=== PATIENT | male | born 1930 | race Caucasian/White ===

== ENCOUNTER 2017-04-10 09:20 | Outpatient (CLI) | payer MEDICARE ==
[2017-04-10 12:41] LABS: Bilirubin Negative (Negative); Blood, Urine Negative (Negative); Clarity Clear (Clear); Glucose, Urine (Dipstick) Negative (Negative); Leukocyte Negative (Negative); Nitrite Negative (Negative); Protein, Urine (Dipstick) Negative (Neg-Trace); Urobilinogen 0.2 mg/dL (0.2-1.0); pH, Urine 5.5 (5.0-9.0)
[2017-04-10 12:42] LABS: #Basophils 0.1 thou/uL (0.0-0.2); #Eosinphils 0.2 thou/uL (0.0-0.7); #Lymphocytes 2.5 thou/uL (1.20-3.40); #Monocytes 0.7 thou/uL (0.11-0.59); #Neutrophils 4.3 thou/uL (1.40-6.50); %Basophils 1.3 % (0.0-1.0); %Eosinophils 2.9 % (0.0-10.0); %Lymphocytes 32.5 % (21.0-51.0); %Monocytes 8.4 % (0.0-10.0); %Neutrophils 54.9 % (42.0-75.0); Hemoglobin 8.5 g/dL (14.0-18.0); Mean Corpuscular HGB CONC 30.4 g/dL (32.0-36.0); Mean Corpuscular Hemoglobin 25.6 pg (27.0-31.0); Mean Corpuscular Volume 84.4 fl (80.0-94.0); Mean Platelet Volume 7.6 fL (7.4-10.4); Platelet Count 334 thou/uL (130-400); RBC Distribution Width 15.8 % (11.5-14.5); Red Blood Cell (RBC) Count 3.33 mill/uL (4.70-6.10); White Blood Cell (WBC) Count 7.7 thou/uL (4.8-10.8)
[2017-04-10 13:04] LABS: ALT (SGPT) 10 U/L (8-55); AST (SGOT) 19 U/L (5-34); Albumin 4.2 g/dL (3.4-4.8); Alkaline Phosphatase 57 U/L (40-150); Anion Gap 15 mmol/L (10-20); BUN (Urea Nitrogen) 29 mg/dL (8.4-25.7); Bilirubin, Total 0.3 mg/dL (0.2-1.2); Calc. Creatinine Clearance 0 mL/min (70-130); Calcium 9.5 mg/dL (7.8-10.44); Carbon Dioxide 21 mmol/L (23-31); Cardiac Risk 4.8 (Less than 4.5); Chloride 107 mmol/L (98-107); Cholesterol 183 mg/dl (< 200 Desired); Estimated GFR-MDRD 31; Globulin 3.1 g/dL (2.4-3.5); Glucose 84 mg/dL (83-110); HDL Cholesterol 38 mg/dL (>60 Neg Risk); LDL Cholesterol, Calculated 128 mg/dL; Potassium 4.7 mmol/L (3.5-5.1); Protein, Total 7.3 g/dL (5.8-8.1); Sodium 138 mmol/L (136-145); Triglycerides 84 mg/dL (Less than 150)
[2017-04-10 13:09] LABS: PSA-Asymptomatic (SCREENING) 0.4 ng/mL (0-4.0); Thyroid Stimulating Hormone 2.088 uIU/mL (0.35-4.94)
== END 2017-04-10 09:21 | disposition home or self-care (01) ==
LOC: NAVSJIPCSP 09:20
PROVIDERS: ATTEND Internal Medicine
DX: Z12.5 Encounter for screening for malignant neoplasm of prostate (principal); M47.816 Spondylosis without myelopathy or radiculopathy, lumbar region; I10 Essential (primary) hypertension; I25.10 Atherosclerotic heart disease of native coronary artery without angina pectoris; D29.1 Benign neoplasm of prostate; E03.9 Hypothyroidism, unspecified
CPT/HCPCS: 36415; 80053; 80061; 81003; 84443; 85025; G0103

== ENCOUNTER 2017-04-15 16:19 | Outpatient (CLI) | payer MEDICARE ==
[2017-04-15 21:18] LABS: Reticulocyte Count 1.6 % (0.5-1.5)
[2017-04-16 19:25] LABS: Vitamin B12 Greater than 2000 pg/mL (211-911)
== END 2017-04-15 16:20 | disposition home or self-care (01) ==
LOC: NAVSJIPCSP 16:19 → NAV LAB 16:20
PROVIDERS: ATTEND Internal Medicine
DX: D64.89 Other specified anemias (principal); Z79.899 Other long term (current) drug therapy
CPT/HCPCS: 82274; 82607; 82728; 82746; 85046

== ENCOUNTER 2017-07-23 12:17 | Outpatient (CLI) | payer MEDICARE ==
[2017-07-23 14:17] LABS: Hemoglobin 12.2 g/dL (14.0-18.0)
== END 2017-07-23 12:18 | disposition home or self-care (01) ==
LOC: NAV LABSP 12:17
PROVIDERS: ATTEND Internal Medicine Gastroenterology
DX: D50.9 Iron deficiency anemia, unspecified (principal)
CPT/HCPCS: 36415; 85014; 85018

== ENCOUNTER 2017-08-12 09:45 | Outpatient (CLI) | payer MEDICARE ==
[2017-08-12 11:53] LABS: #Basophils 0.1 thou/uL (0.0-0.2); #Eosinphils 0.2 thou/uL (0.0-0.7); #Lymphocytes 2.8 thou/uL (1.20-3.40); #Monocytes 0.6 thou/uL (0.11-0.59); #Neutrophils 3.9 thou/uL (1.40-6.50); %Basophils 0.9 % (0.0-1.0); %Eosinophils 2.9 % (0.0-10.0); %Lymphocytes 36.9 % (21.0-51.0); %Monocytes 7.7 % (0.0-10.0); %Neutrophils 51.6 % (42.0-75.0); Hemoglobin 12.7 g/dL (14.0-18.0); Mean Corpuscular Volume 96.6 fl (80.0-94.0); Mean Platelet Volume 7.3 fL (7.4-10.4); Platelet Count 243 thou/uL (130-400); RBC Distribution Width 17.2 % (11.5-14.5); Red Blood Cell (RBC) Count 4.09 mill/uL (4.70-6.10); White Blood Cell (WBC) Count 7.5 thou/uL (4.8-10.8)
[2017-08-12 12:09] LABS: Anion Gap 16 mmol/L (10-20); BUN (Urea Nitrogen) 30 mg/dL (8.4-25.7); Calc. Creatinine Clearance 0 mL/min (70-130); Calcium 10.2 mg/dL (7.8-10.44); Carbon Dioxide 22 mmol/L (23-31); Chloride 104 mmol/L (98-107); Estimated GFR-MDRD 33; Glucose 96 mg/dL (83-110); Magnesium 2.7 mg/dL (1.6-2.6); Sodium 137 mmol/L (136-145)
== END 2017-08-12 09:46 | disposition home or self-care (01) ==
LOC: NAVSJIPCSP 09:45
PROVIDERS: ATTEND Internal Medicine
DX: D64.89 Other specified anemias (principal)
CPT/HCPCS: 36415; 80048; 83735; 84443; 85025

== ENCOUNTER 2017-08-19 08:48 | Outpatient (CLI) | payer MEDICARE ==
[2017-08-19 12:43] LABS: #Basophils 0.1 thou/uL (0.0-0.2); #Eosinphils 0.2 thou/uL (0.0-0.7); #Lymphocytes 2.6 thou/uL (1.20-3.40); #Monocytes 0.6 thou/uL (0.11-0.59); #Neutrophils 3.7 thou/uL (1.40-6.50); %Basophils 1.2 % (0.0-1.0); %Eosinophils 2.8 % (0.0-10.0); %Lymphocytes 35.8 % (21.0-51.0); %Monocytes 8.5 % (0.0-10.0); %Neutrophils 51.7 % (42.0-75.0); Hemoglobin 12.7 g/dL (14.0-18.0); Mean Corpuscular HGB CONC 32.7 g/dL (32.0-36.0); Mean Corpuscular Hemoglobin 31.7 pg (27.0-31.0); Mean Platelet Volume 7.1 fL (7.4-10.4); Platelet Count 258 thou/uL (130-400); RBC Distribution Width 16.5 % (11.5-14.5); White Blood Cell (WBC) Count 7.1 thou/uL (4.8-10.8)
== END 2017-08-19 08:49 | disposition home or self-care (01) ==
LOC: NAVSJIPCSP 08:48
PROVIDERS: ATTEND Internal Medicine
DX: D64.89 Other specified anemias (principal)
CPT/HCPCS: 36415; 85025

== ENCOUNTER 2018-02-10 01:13 | Emergency (ER) | payer MEDICARE ==
[2018-02-10] MEDS ORDERED: Sodium Chloride 0.9% 1,000 ML ONE (01:46)
[2018-02-10] MEDS ORDERED: Diltiazem 125 MG/25 ML ONE (01:46)
[2018-02-10] MEDS ORDERED: cefTRIAXone\\ROCEPHIN 1 GM VIAL ONE (01:46)
[2018-02-10] MEDS ORDERED: Acetaminophen 500 MG TAB ONE (01:46)
[2018-02-10] MEDS ORDERED: Sodium Chloride 0.9% 100 ML ONE (01:47)
[2018-02-10 01:55] LABS: INR-International Normal Ratio 1.5; PTT 41.9 SEC (22.9-36.1); Prothrombin Time 18.8 SEC (12.0-14.7)
[2018-02-10 01:57] LABS: ALT (SGPT) 33 U/L (8-55); AST (SGOT) 42 U/L (5-34); Albumin 3.5 g/dL (3.4-4.8); Alkaline Phosphatase 52 U/L (40-150); Anion Gap 13 mmol/L (10-20); BUN (Urea Nitrogen) 31 mg/dL (8.4-25.7); Bilirubin, Total 0.6 mg/dL (0.2-1.2); CKMB 5.7 ng/mL (0-6.6); Calc. Creatinine Clearance 0 mL/min (70-130); Calcium 9.5 mg/dL (7.8-10.44); Carbon Dioxide 20 mmol/L (23-31); Chloride 106 mmol/L (98-107); Estimated GFR-MDRD 38; Globulin 3.2 g/dL (2.4-3.5); Glucose 107 mg/dL (83-110); Potassium 4.1 mmol/L (3.5-5.1); Protein, Total 6.7 g/dL (5.8-8.1); Sodium 135 mmol/L (136-145)
[2018-02-10 02:03] LABS: Band 19 % (5-11); Hemoglobin 12.5 g/dL (14.0-18.0); Lymphocytes 12 % (21-51); MDiff Complete? YES; Mean Corpuscular HGB CONC 33.1 g/dL (32.0-36.0); Mean Corpuscular Hemoglobin 31.6 pg (27.0-31.0); Mean Corpuscular Volume 95.5 fl (80.0-94.0); Mean Platelet Volume 9.2 fL (7.4-10.4); Monocytes 5 % (0-10); Neutrophil 64 % (42-75); PLT Morphology Comment Appears Adequate; Platelet Count 200 thou/uL (130-400); RBC Distribution Width 12.2 % (11.5-14.5); RBC Morphology Normal; Red Blood Cell (RBC) Count 3.96 mill/uL (4.70-6.10); White Blood Cell (WBC) Count 12.6 thou/uL (4.8-10.8)
[2018-02-10 02:16] LABS: Bilirubin Negative (Negative); Blood, Urine Moderate (Negative); Clarity Clear (Clear); Glucose, Urine (Dipstick) Negative (Negative); Leukocyte Negative (Negative); Nitrite Negative (Negative); Protein, Urine (Dipstick) 100 mg/dL (Neg-Trace); Urobilinogen 0.2 mg/dL (0.2-1.0)
[2018-02-10 02:22] LABS: Bacteria/HPF None Seen HPF (None Seen); RBC/HPF 0-3 HPF (0-3); Squamous Epithelial None Seen HPF (0-3); WBC/HPF 0-3 HPF (0-3)
--- NOTE | 2018-02-10 08:11 | RAD ---
CHEST ONE VIEW: History: Fever. Comparison: 09-08-15 FINDINGS: Cardiac silhouette is magnified by projection. Pulmonary vasculature is upper limits of normal. Trian gular opacity projects over the anterior segment right upper lobe. Mediastinum is midline with aortic calcification and post-operative changes. No evidence of pneumothorax. IMPRESSION: 1. Subtle right upper lobe infiltrate. Clinical correlation regarding other signs and symptoms of rig ht upper lobe pneumonitis is required. Please consider close radiographic follow up with upright PA a nd lateral views of the chest for further evaluation. 2. Borderline pulmonary vascular congestion. POS: [facility]
== END 2018-02-10 02:58 | disposition short-term general hospital (02) ==
LOC: NAV ERS 01:13
DX: I48.91 Unspecified atrial fibrillation (principal); R50.9 Fever, unspecified; D50.0 Iron deficiency anemia secondary to blood loss (chronic); I10 Essential (primary) hypertension; I25.10 Atherosclerotic heart disease of native coronary artery without angina pectoris; E03.9 Hypothyroidism, unspecified; E78.5 Hyperlipidemia, unspecified; Z79.899 Other long term (current) drug therapy
CPT/HCPCS: 51701; 71045; 80053; 81003; 81015; 82553; 83605; 84484; 85025; 85610; 85730; 87040; 87086; 87804; 93005; 94760; 96365; 96375; J0696; J7050

== ENCOUNTER 2018-02-16 19:37 | Inpatient (IN) | payer MEDICARE ==
[2018-02-16] MEDS ORDERED: Nitroglycerin 0.4 MG TAB (25 Tab Bottle) SL PRN (20:30)
[2018-02-16] MEDS ORDERED: Amoxicillin/Potassium Clav 875 MG TAB PO SCH (21:00)
[2018-02-16] MEDS: Magnesium Chloride 64 MG TAB PO SCH (21:28)
[2018-02-16] MEDS: Aspirin 81 mg Enteric Coated Tablet PO SCH (21:28)
[2018-02-16] MEDS: Apixaban 5 MG TAB PO SCH (21:28)
[2018-02-16 22:58] VITALS: BMI 25.1
--- NOTE | 2018-02-17 00:20 | HP ---
DATE OF ADMISSION: 02/16/2018 HISTORY OF PRESENT ILLNESS: The patient is a very pleasant 87-year-old white male well known [facility] with a history of paroxysmal atrial fibrillation, coronary artery disease, status post distant cor onary bypass graft with recent negative Cardiolite, hypertension, hyperlipidemia, who presented to [facility] on 02/10/2018 with significant weakness, shortness of breath, was found to have atrial fibri llation with rapid ventricular response and underlying pneumonia. Coronary ischemia was ruled out wi th enzymes. He was started on diltiazem drip for rate control. He continued to have difficulty with this when attempted to be weaned off the IV diltiazem, despite being on oral diltiazem and subsequen tly was started on digoxin with good rate control. He was started on anticoagulation with apixaban a nd had no problems with breathing or embolic events. He did have some problem with intermittent conf usion, was evaluated for pulmonary embolus with a CT angio. His white count remained normal. He was , however, started on broad spectrum antibiotics with Rocephin and azithromycin then converted to Zos yn and vancomycin, but was controlled and was discharge on Augmentin. He has had no cough since that time, he has been seen by Speech and has been started on honey thickened regular diet and has done w ell. PAST MEDICAL HISTORY: Remarkable also for hypothyroidism, gastroesophageal reflux, benign prostatic hypertrophy. PAST SURGICAL HISTORY: As mentioned above, positive for coronary bypass graft also cholecystectomy, and laminectomy. FAMILY HISTORY: Positive for coronary artery disease. SOCIAL HISTORY: He is a , lives alone, next door to his son. He is a nonsmoker, nondrinker. MEDICATIONS ON ADMISSION: Included levothyroxine 50 mcg daily, lisinopril 20 daily, aspirin 81 daily , isosorbide 30 daily, fluticasone nasal spray, amlodipine 5 daily, Apixaban 2.5 twice daily, Zetia 1 0 daily, ferrous sulfate 325 daily, naproxen 220 daily, and omeprazole 20 twice daily. ALLERGIES: He is allergic to MULTAQ, AMIODARONE, MORPHINE, TRAMADOL, CODEINE, and LOMOTIL. REVIEW OF SYSTEMS: HEENT: He denies any headaches, dizziness. He does state he is very weak and requires a walker to a mbulate. He denies any change in vision or hearing. 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 PULMONARY: Denies cough or sputum production this time. He did have significant cough on admission with minimal sputum production. He has no chest pain, pleurisy. CARDIOVASCULAR: He denies any palpitations, orthopnea, paroxysmal nocturnal dyspnea. has no dyspnea at rest, but does have some mild dyspnea on exertion. GASTROINTESTINAL: Denies nausea, vomiting, diarrhea, constipation, abdominal pain. GENITOURINARY: Denies dysuria, hematuria. Does have some mild decreased stream and nocturia. NEUROLOGIC: Denies localized numbness, weakness, in arms or extremities. PHYSICAL EXAMINATION: GENERAL: Patient is an elderly white male lying in bed in no acute distress, oriented x3 and coopera tive. VITAL SIGNS: Blood pressure 146/67, temperature is 99, pulse 73 at this time, respirations 18, and O 2 sats 93% on 2 liters. HEENT: Pupils are equal, round, and react to light and accommodation. Sclerae are anicteric, Conjun ctivae pale. Oral mucous membranes well hydrated. NECK: Supple. There are no nodes or masses. JVP is not elevated. LUNGS: Clear. CARDIAC: Shows an irregularly irregular rhythm. No gallops or murmurs. ABDOMEN: Soft, nontender with no masses or organomegaly. SKIN/EXTREMITIES: Display no edema, clubbing, cyanosis. NEUROLOGICAL: Shows no focal findings. LABORATORY DATA: Most recent laboratory show white count still elevated to 14,000, hematocrit 35, he moglobin 11. PO2 of 87, pCO2 of 30, pH of 7.50 on 2 liters. Magnesium 2.1. B12 is 2000. Sodium 13 3, potassium 3.7, chloride 103, bicarb 20, BUN 29, creatinine 1.62, glucose 92, calcium 8.6. Digoxin level 1.17. ASSESSMENT: 1. Patient is an 87-year-old white male with a history of recent pneumonia with subsequent onset of atrial fibrillation with rapid ventricular response, who has had control of his atrial fibrillation w ith oral diltiazem and digoxin has been anticoagulated with apixaban. He appears to be getting stron jimmie and still requires PT and OT. He also has a history of pneumonia, most likely the precipitating factor, atrial fibrillation with RVR, and is still having a leukocytosis of 14,000 with a low grade f ever despite being on Augmentin. We will be monitored closely and may need to be back on Rocephin, b ut we will repeat chest x-ray in the a.m. 2. Hypertension is well controlled at this time on diltiazem off of his lisinopril and amlodipine. We will monitor closely, may need to be back on the lisinopril. 3. Benign prostatic hypertrophy, stable. 4. Hyperlipidemia, stable and we will continue home medications.
[2018-02-17 05:09] LABS: #Basophils 0.1 thou/uL (0.0-0.2); #Eosinphils 0.4 thou/uL (0.0-0.7); #Lymphocytes 1.4 thou/uL (1.20-3.40); #Neutrophils 12.4 thou/uL (1.40-6.50); %Basophils 0.7 % (0.0-1.0); %Eosinophils 2.4 % (0.0-10.0); %Lymphocytes 8.9 % (21.0-51.0); %Monocytes 6.6 % (0.0-10.0); %Neutrophils 81.5 % (42.0-75.0); Mean Corpuscular HGB CONC 33.3 g/dL (32.0-36.0); Mean Corpuscular Volume 96.2 fl (80.0-94.0); Mean Platelet Volume 8.3 fL (7.4-10.4); Platelet Count 443 thou/uL (130-400); RBC Distribution Width 12.5 % (11.5-14.5); Red Blood Cell (RBC) Count 4.05 mill/uL (4.70-6.10); White Blood Cell (WBC) Count 15.2 thou/uL (4.8-10.8)
[2018-02-17 05:29] LABS: ALT (SGPT) 53 U/L (8-55); AST (SGOT) 49 U/L (5-34); Alkaline Phosphatase 61 U/L (40-150); Anion Gap 15 mmol/L (10-20); BUN (Urea Nitrogen) 24 mg/dL (8.4-25.7); Bilirubin, Total 0.8 mg/dL (0.2-1.2); Calc. Creatinine Clearance 36 mL/min (70-130); Calcium 9.7 mg/dL (7.8-10.44); Carbon Dioxide 22 mmol/L (23-31); Chloride 101 mmol/L (98-107); Estimated GFR-MDRD 48; Globulin 4.3 g/dL (2.4-3.5); Glucose 92 mg/dL (83-110); Potassium 4.4 mmol/L (3.5-5.1); Protein, Total 7.3 g/dL (5.8-8.1); Sodium 134 mmol/L (136-145)
[2018-02-17] MEDS: Levothyroxine Sodium 50 MCG TAB PO SCH (05:47)
[2018-02-17] MEDS: Digoxin 0.125 MG TAB PO SCH (08:23)
[2018-02-17] MEDS: Potassium Chloride 20 MEQ TAB PO SCH (08:23)
[2018-02-17] MEDS: Ferrous Sulfate 325 MG TAB PO SCH (08:24)
[2018-02-17] MEDS: Apixaban 5 MG TAB PO SCH ×2 (08:24→20:48)
[2018-02-17] MEDS: Naproxen 500 MG TAB PO SCH (08:24)
[2018-02-17] MEDS: Vancomycin HCl 750 MG in Sodium Chloride 0.9% 250 ML 250 ML IVPB SCH (08:25)
[2018-02-17] MEDS: Ezetimibe 10 MG TAB PO SCH (08:25)
--- NOTE | 2018-02-17 09:33 | RAD ---
PORTABLE CHEST 1 VIEW: Date: 02/17/18 Time: 0839 hours HISTORY: Pneumonia. FINDINGS/IMPRESSION: Comparison made with exam of 02/14/18. There is continued patchy air space disease in the right upper lobe. No pneumothoraces or large effus ions are identified. Increased interstitial markings are again noted. Changes of median sternotomy ar e again seen. POS: [facility]
--- NOTE | 2018-02-17 09:41 | RAD ---
LEFT WRIST 3 VIEWS: Date: 02/17/18 HISTORY: Wrist pain. COMPARISON: None. FINDINGS: No acute displaced fracture or malalignment. Mild calcification triangular fibrocartilage. Small radi opaque foreign object along the ulnar styloid. Moderate degenerative disease of carpometacarpal joint . IMPRESSION: No acute fracture or malalignment. POS: [facility]
[2018-02-17] MEDS: Piperacillin/Tazobactam 2.25 GM in Sodium Chloride 0.9% 100 ML IVPB SCH ×2 (14:24→20:48)
[2018-02-17] MEDS: Magnesium Chloride 64 MG TAB PO SCH ×2 (17:25→20:48)
[2018-02-17] MEDS: Aspirin 81 mg Enteric Coated Tablet PO SCH (20:48)
--- NOTE | 2018-02-17 21:18 | PRG ---
DATE OF SERVICE: 02/17/2018 SUBJECTIVE: The patient is slightly confused, but in no respiratory distress and agitation. Appears to be attempting to cooperate with therapy. LABORATORY DATA: Shows white count is still elevated to 15,200, hematocrit 39, hemoglobin 13. Sodiu m 134, potassium 4.4, chloride 101, bicarbonate 22, BUN 24, creatinine 1.39, albumin 3.0, globulin 4. 3, AST 49. OBJECTIVE: LUNGS: Appear to be clear. CARDIAC: Examination shows regular rhythm, but chest x-ray shows persistent right upper lobe patchy infiltrates on Augmentin. ASSESSMENT: 1. Persistent pneumonia appears to be worsening white count on oral antibiotics and we will start ag ain on vancomycin and Zosyn and repeat lab in the a.m. 2. Atrial fibrillation with rate control and anticoagulation appears to be stable. 3. Hospital delirium, superimposed on mild dementia. He is to be monitored closely. 4. Severe deconditioning cooperating with therapy. PLAN: 1. Continue PT, OT. 2. Continue vancomycin and Zosyn. Vancomycin monitored by pharmacy. 3. Continue to monitor vital signs on diltiazem and apixaban. 4. Repeat CBC and base met profile in the a.m.
[2018-02-18 05:25] LABS: #Basophils 0.1 thou/uL (0.0-0.2); #Eosinphils 0.5 thou/uL (0.0-0.7); #Lymphocytes 1.5 thou/uL (1.20-3.40); #Monocytes 0.9 thou/uL (0.11-0.59); #Neutrophils 10.9 thou/uL (1.40-6.50); %Basophils 0.6 % (0.0-1.0); %Eosinophils 3.7 % (0.0-10.0); %Lymphocytes 10.6 % (21.0-51.0); %Monocytes 6.3 % (0.0-10.0); %Neutrophils 78.8 % (42.0-75.0); Hemoglobin 12.3 g/dL (14.0-18.0); Mean Corpuscular HGB CONC 33.3 g/dL (32.0-36.0); Mean Corpuscular Hemoglobin 32.7 pg (27.0-31.0); Mean Corpuscular Volume 98.1 fl (80.0-94.0); Mean Platelet Volume 7.3 fL (7.4-10.4); Platelet Count 507 thou/uL (130-400); RBC Distribution Width 12.7 % (11.5-14.5); Red Blood Cell (RBC) Count 3.75 mill/uL (4.70-6.10); White Blood Cell (WBC) Count 13.8 thou/uL (4.8-10.8)
[2018-02-18 05:41] LABS: Anion Gap 14 mmol/L (10-20); BUN (Urea Nitrogen) 31 mg/dL (8.4-25.7); Calc. Creatinine Clearance 37 mL/min (70-130); Calcium 9.5 mg/dL (7.8-10.44); Carbon Dioxide 20 mmol/L (23-31); Chloride 105 mmol/L (98-107); Estimated GFR-MDRD 51; Glucose 96 mg/dL (83-110); Potassium 4.3 mmol/L (3.5-5.1); Sodium 135 mmol/L (136-145)
[2018-02-18] MEDS: Levothyroxine Sodium 50 MCG TAB PO SCH (06:39)
[2018-02-18] MEDS: Piperacillin/Tazobactam 2.25 GM in Sodium Chloride 0.9% 100 ML IVPB SCH ×3 (06:39→21:21)
--- NOTE | 2018-02-18 08:19 | PRG ---
DATE OF SERVICE: 02/18/2018 SUBJECTIVE: The patient is awake and alert, in no distress, slightly confused, but not agitated and cooperating with therapy. OBJECTIVE: VITAL SIGNS: Show blood pressure is 148/65, temperature 97, pulse 79, respirations 20, O2 sat is 95% on room air. LUNGS: Clear. CARDIAC EXAMINATION: Shows an irregular rhythm with no gallops or murmurs. ABDOMEN: Soft and nontender. SKIN AND EXTREMITIES: Show no edema, clubbing, cyanosis. LABORATORY DATA: Shows white count is down to 13,800, hematocrit 36, hemoglobin 12, sodium 135, pota ssium 4.3, chloride 105, bicarbonate 20, BUN 31, creatinine 1.33. Most recent chest x-ray yesterday did show persistent right upper lobe infiltrates. ASSESSMENT: 1. Right upper lobe pneumonia, failed treatment with Augmentin, appears to be improving on IV vancom ycin and Zosyn. We will continue for 1 week with pharmacy to measure vancomycin. 2. Atrial fibrillation with rate control, on anticoagulation, stable on diltiazem. 3. Severe deconditioning with multiple falls recently, improving with PT and OT. 4. Mild dementia with superimposed delirium, appears to be slowly improving. PLAN: Continue PT/OT. Continue IV vancomycin and Zosyn. Repeat CBC in the a.m. Continue rate cont rol with diltiazem and anticoagulation with apixaban.
[2018-02-18] MEDS: Naproxen 500 MG TAB PO SCH (09:03)
[2018-02-18] MEDS: Apixaban 5 MG TAB PO SCH ×2 (09:03→20:18)
[2018-02-18] MEDS: Ezetimibe 10 MG TAB PO SCH (09:04)
[2018-02-18] MEDS: Potassium Chloride 20 MEQ TAB PO SCH (09:04)
[2018-02-18] MEDS: Ferrous Sulfate 325 MG TAB PO SCH (09:04)
[2018-02-18] MEDS: Digoxin 0.125 MG TAB PO SCH (09:04)
[2018-02-18] MEDS: Vancomycin HCl 750 MG in Sodium Chloride 0.9% 250 ML 250 ML IVPB SCH (09:06)
[2018-02-18] MEDS: Magnesium Chloride 64 MG TAB PO SCH ×2 (14:39→20:17)
[2018-02-18] MEDS: Aspirin 81 mg Enteric Coated Tablet PO SCH (20:18)
[2018-02-19] MEDS: Levothyroxine Sodium 50 MCG TAB PO SCH (05:26)
[2018-02-19] MEDS: Piperacillin/Tazobactam 2.25 GM in Sodium Chloride 0.9% 100 ML IVPB SCH ×3 (05:26→20:57)
[2018-02-19] MEDS: Magnesium Chloride 64 MG TAB PO SCH ×2 (08:14→21:14)
[2018-02-19] MEDS: Apixaban 5 MG TAB PO SCH ×2 (08:15→20:58)
[2018-02-19] MEDS: Ferrous Sulfate 325 MG TAB PO SCH (08:16)
[2018-02-19] MEDS: Potassium Chloride 20 MEQ TAB PO SCH (08:16)
[2018-02-19] MEDS: Ezetimibe 10 MG TAB PO SCH (08:16)
[2018-02-19] MEDS: Naproxen 500 MG TAB PO SCH (08:16)
[2018-02-19] MEDS: Digoxin 0.125 MG TAB PO SCH (08:18)
[2018-02-19 08:19] LABS: #Basophils 0.1 thou/uL (0.0-0.2); #Eosinphils 0.6 thou/uL (0.0-0.7); #Monocytes 0.9 thou/uL (0.11-0.59); #Neutrophils 9.8 thou/uL (1.40-6.50); %Basophils 1.1 % (0.0-1.0); %Eosinophils 4.6 % (0.0-10.0); %Lymphocytes 14.8 % (21.0-51.0); %Monocytes 6.4 % (0.0-10.0); %Neutrophils 73.2 % (42.0-75.0); Hemoglobin 13.1 g/dL (14.0-18.0); Mean Corpuscular HGB CONC 32.2 g/dL (32.0-36.0); Mean Corpuscular Hemoglobin 32.1 pg (27.0-31.0); Mean Corpuscular Volume 99.7 fl (80.0-94.0); Mean Platelet Volume 7.2 fL (7.4-10.4); Platelet Count 671 thou/uL (130-400); RBC Distribution Width 12.9 % (11.5-14.5); Red Blood Cell (RBC) Count 4.09 mill/uL (4.70-6.10); White Blood Cell (WBC) Count 13.4 thou/uL (4.8-10.8)
[2018-02-19] MEDS: Vancomycin HCl 750 MG in Sodium Chloride 0.9% 250 ML 250 ML IVPB SCH (08:21)
[2018-02-19 08:27] LABS: Vancomycin, Trough 10.1 ug/mL
[2018-02-19 08:30] LABS: Anion Gap 16 mmol/L (10-20); BUN (Urea Nitrogen) 26 mg/dL (8.4-25.7); Calc. Creatinine Clearance 35 mL/min (70-130); Carbon Dioxide 20 mmol/L (23-31); Chloride 105 mmol/L (98-107); Digoxin 1.09 ng/mL (0.8-2.0); Estimated GFR-MDRD 47; Glucose 112 mg/dL (83-110); Potassium 4.4 mmol/L (3.5-5.1); Sodium 137 mmol/L (136-145)
--- NOTE | 2018-02-19 13:30 | PRG ---
DATE OF SERVICE: 02/19/2018 SUBJECTIVE: Mr. Martinez is doing well, resting comfortably, sleeping, but arousable. Discussed with charlie camara and no concerns. OBJECTIVE: VITAL SIGNS: He is afebrile, heart rate is 80, respirations 20, oxygen saturation 94% on room air, b lood pressure 171/74 this morning. Last night it was 141/63 and yesterday morning 126/58. CARDIOVASCULAR: S1, S2 plus. RESPIRATORY: Normal vesicular breath sounds. ABDOMEN: Soft, nontender, bowel sounds heard in all quadrants. EXTREMITIES: Without cyanosis or clubbing. CENTRAL NERVOUS SYSTEM: Generalized weakness. IMPRESSION: 1. Right upper lobe pneumonia, responding to vancomycin and Zosyn. 2. Atrial fibrillation. 3. Significant deconditioning. 4. Dementia. 5. Hypothyroidism. 6. Gastroesophageal reflux disease. 7. Benign prostatic hypertrophy. PLAN: 1. Continue IV antibiotics. 2. Routine laboratory values. 3. Breathing treatments. 4. Monitor respiratory status. 5. DVT and stress ulcer prophylaxis. 6. Decubitus precautions.
[2018-02-19] MEDS: Aspirin 81 mg Enteric Coated Tablet PO SCH (20:59)
[2018-02-20] MEDS: Piperacillin/Tazobactam 2.25 GM in Sodium Chloride 0.9% 100 ML IVPB SCH ×3 (05:28→21:39)
[2018-02-20] MEDS: Levothyroxine Sodium 50 MCG TAB PO SCH (05:28)
[2018-02-20 05:35] LABS: #Basophils 0.1 thou/uL (0.0-0.2); #Eosinphils 0.5 thou/uL (0.0-0.7); #Lymphocytes 1.7 thou/uL (1.20-3.40); #Neutrophils 9.5 thou/uL (1.40-6.50); %Basophils 1.1 % (0.0-1.0); %Lymphocytes 13.3 % (21.0-51.0); %Monocytes 7.8 % (0.0-10.0); %Neutrophils 73.8 % (42.0-75.0); Hemoglobin 11.7 g/dL (14.0-18.0); Mean Corpuscular HGB CONC 32.7 g/dL (32.0-36.0); Mean Corpuscular Hemoglobin 32.2 pg (27.0-31.0); Mean Corpuscular Volume 98.6 fl (80.0-94.0); Mean Platelet Volume 7.4 fL (7.4-10.4); Platelet Count 663 thou/uL (130-400); RBC Distribution Width 12.7 % (11.5-14.5); Red Blood Cell (RBC) Count 3.63 mill/uL (4.70-6.10); White Blood Cell (WBC) Count 12.9 thou/uL (4.8-10.8)
[2018-02-20 05:36] LABS: Anion Gap 14 mmol/L (10-20); BUN (Urea Nitrogen) 24 mg/dL (8.4-25.7); Calc. Creatinine Clearance 33 mL/min (70-130); Calcium 9.4 mg/dL (7.8-10.44); Carbon Dioxide 20 mmol/L (23-31); Chloride 106 mmol/L (98-107); Estimated GFR-MDRD 44; Glucose 92 mg/dL (83-110); Potassium 4.2 mmol/L (3.5-5.1); Sodium 136 mmol/L (136-145)
[2018-02-20] MEDS: Potassium Chloride 20 MEQ TAB PO SCH (08:38)
[2018-02-20] MEDS: Naproxen 500 MG TAB PO SCH (08:38)
[2018-02-20] MEDS: Apixaban 5 MG TAB PO SCH ×2 (08:38→21:38)
[2018-02-20] MEDS: Ezetimibe 10 MG TAB PO SCH (08:39)
[2018-02-20] MEDS: Digoxin 0.125 MG TAB PO SCH (08:39)
[2018-02-20] MEDS: Ferrous Sulfate 325 MG TAB PO SCH (08:39)
[2018-02-20] MEDS: Magnesium Chloride 64 MG TAB PO SCH ×2 (08:40→21:38)
[2018-02-20] MEDS ORDERED: Vancomycin HCl 1 GM in Sodium Chloride 0.9% 250 ML 250 ML IVPB SCH (09:00)
--- NOTE | 2018-02-20 09:38 | PRG ---
DATE OF SERVICE: 02/20/2018 SUBJECTIVE: Mr. Martinez is doing well up in his chair. Denies any complaints, tolerating his IV antibi otics. Discussed with nursing and no concerns. OBJECTIVE: VITAL SIGNS: He is afebrile, heart rate 84, respirations 20, oxygen saturation 92% on room air, bloo d pressure 165/74. CARDIOVASCULAR SYSTEM: S1, S2 plus. RESPIRATORY SYSTEM: Normal vesicular breath sounds. ABDOMEN: Soft, nontender, bowel sounds heard in all quadrants. EXTREMITIES: Without cyanosis or clubbing. CENTRAL NERVOUS SYSTEM: Generalized weakness. LABORATORY VALUES: White count is down to 12.9, hemoglobin and hematocrit is 11.7 and 35.8. Sodium 136, potassium 4.2, BUN and creatinine 24 and 1.51. IMPRESSION: 1. Resolving right-sided pneumonia on vancomycin and Zosyn. 2. History of atrial fibrillation. 3. Hypothyroidism. 4. Gastroesophageal reflux disease. 5. Benign prostatic hypertrophy. 6. Mild worsening of his BUN and creatinine. PLAN: 1. Monitor renal function. 2. Simplify antibiotic regimen. I am going to stop vancomycin and just continue him on Zosyn. 3. We will hold his naproxen given worsening renal function. 4. Encourage p.o. fluid intake. 5. Routine laboratory values. 6. Physical therapy. 7. Breathing treatments.
[2018-02-20] MEDS: Aspirin 81 mg Enteric Coated Tablet PO SCH (21:39)
[2018-02-21 05:42] LABS: #Basophils 0.2 thou/uL (0.0-0.2); #Eosinphils 0.5 thou/uL (0.0-0.7); #Lymphocytes 1.9 thou/uL (1.20-3.40); #Neutrophils 9.7 thou/uL (1.40-6.50); %Basophils 1.1 % (0.0-1.0); %Eosinophils 3.7 % (0.0-10.0); %Lymphocytes 14.1 % (21.0-51.0); %Monocytes 7.7 % (0.0-10.0); %Neutrophils 73.3 % (42.0-75.0); Hemoglobin 11.9 g/dL (14.0-18.0); Mean Corpuscular HGB CONC 32.3 g/dL (32.0-36.0); Mean Corpuscular Volume 98.9 fl (80.0-94.0); Mean Platelet Volume 7.3 fL (7.4-10.4); Platelet Count 680 thou/uL (130-400); RBC Distribution Width 13.1 % (11.5-14.5); Red Blood Cell (RBC) Count 3.72 mill/uL (4.70-6.10); White Blood Cell (WBC) Count 13.2 thou/uL (4.8-10.8)
[2018-02-21 05:53] LABS: Anion Gap 14 mmol/L (10-20); BUN (Urea Nitrogen) 22 mg/dL (8.4-25.7); Calc. Creatinine Clearance 37 mL/min (70-130); Calcium 9.4 mg/dL (7.8-10.44); Carbon Dioxide 20 mmol/L (23-31); Chloride 108 mmol/L (98-107); Estimated GFR-MDRD 50; Glucose 91 mg/dL (83-110); Potassium 4.4 mmol/L (3.5-5.1); Sodium 138 mmol/L (136-145)
[2018-02-21] MEDS: Levothyroxine Sodium 50 MCG TAB PO SCH (06:11)
[2018-02-21] MEDS: Piperacillin/Tazobactam 2.25 GM in Sodium Chloride 0.9% 100 ML IVPB SCH ×3 (06:11→21:47)
[2018-02-21] MEDS: Ezetimibe 10 MG TAB PO SCH (09:18)
[2018-02-21] MEDS: Digoxin 0.125 MG TAB PO SCH (09:18)
[2018-02-21] MEDS: Potassium Chloride 20 MEQ TAB PO SCH (09:18)
[2018-02-21] MEDS: Apixaban 5 MG TAB PO SCH ×2 (09:18→21:47)
[2018-02-21] MEDS: Magnesium Chloride 64 MG TAB PO SCH ×2 (09:18→21:47)
[2018-02-21] MEDS: Ferrous Sulfate 325 MG TAB PO SCH (09:19)
--- NOTE | 2018-02-21 15:22 | PRG ---
DATE OF SERVICE: 02/21/2018 SUBJECTIVE: Mr. Martinez is resting comfortably. He is arousable. He denies any complaints. No family at bedside. OBJECTIVE: VITAL SIGNS: He is afebrile, heart rate is 77, respirations 21, oxygen saturation 94% on room air, b lood pressure 162/72. CARDIOVASCULAR: S1, S2 plus. RESPIRATORY: Normal vesicular breath sounds. ABDOMEN: Soft, nontender, bowel sounds heard in all quadrants. EXTREMITIES: Without cyanosis or clubbing. CENTRAL NERVOUS SYSTEM: Generalized weakness. LABORATORY VALUES: White count is 13.2, H&H is 11.9 and 36.7. Sodium 138, potassium 4.4, BUN and cr eatinine 22 and 1.35. IMPRESSION: 1. Right lower lobe pneumonia. 2. Improving renal dysfunction. 3. History of atrial fibrillation. 4. Hypothyroidism. 5. Gastroesophageal reflux disease. 6. Benign prostatic hypertrophy. PLAN: 1. Continue IV Zosyn. 2. Monitor CBC. 3. Physical therapy. 4. Nutritional support. 5. Breathing treatments. 6. Monitor oxygen saturation. 7. Discussed with patient in detail. All questions answered.
[2018-02-21] MEDS: Aspirin 81 mg Enteric Coated Tablet PO SCH (21:48)
[2018-02-22 05:28] LABS: #Basophils 0.2 thou/uL (0.0-0.2); #Eosinphils 0.4 thou/uL (0.0-0.7); #Lymphocytes 1.9 thou/uL (1.20-3.40); #Monocytes 1.2 thou/uL (0.11-0.59); #Neutrophils 10.3 thou/uL (1.40-6.50); %Basophils 1.4 % (0.0-1.0); %Eosinophils 2.7 % (0.0-10.0); %Lymphocytes 13.6 % (21.0-51.0); %Monocytes 8.4 % (0.0-10.0); Hemoglobin 12.1 g/dL (14.0-18.0); Mean Corpuscular Hemoglobin 31.7 pg (27.0-31.0); Mean Corpuscular Volume 99.1 fl (80.0-94.0); Mean Platelet Volume 7.1 fL (7.4-10.4); Platelet Count 705 thou/uL (130-400); RBC Distribution Width 13.1 % (11.5-14.5); Red Blood Cell (RBC) Count 3.83 mill/uL (4.70-6.10); White Blood Cell (WBC) Count 13.9 thou/uL (4.8-10.8)
[2018-02-22] MEDS: Piperacillin/Tazobactam 2.25 GM in Sodium Chloride 0.9% 100 ML IVPB SCH ×3 (06:15→21:06)
[2018-02-22] MEDS: Levothyroxine Sodium 50 MCG TAB PO SCH (06:16)
[2018-02-22] MEDS: Potassium Chloride 20 MEQ TAB PO SCH (09:07)
[2018-02-22] MEDS: Ezetimibe 10 MG TAB PO SCH (09:07)
[2018-02-22] MEDS: Digoxin 0.125 MG TAB PO SCH (09:07)
[2018-02-22] MEDS: Ferrous Sulfate 325 MG TAB PO SCH (09:07)
[2018-02-22] MEDS: Magnesium Chloride 64 MG TAB PO SCH ×2 (09:08→21:06)
[2018-02-22] MEDS: Apixaban 5 MG TAB PO SCH ×2 (09:08→21:05)
--- NOTE | 2018-02-22 16:01 | PRG ---
DATE OF SERVICE: 02/22/2018 SUBJECTIVE: Mr. Martinez is doing well, resting comfortably. Denies any complaints. No family at [facility]. Discussed with nursing. OBJECTIVE: VITAL SIGNS: He is afebrile, heart rate 84, respirations 20, oxygen saturation is 95%, blood pressur e 148/70. CARDIOVASCULAR SYSTEM: S1 and S2 plus. RESPIRATORY SYSTEM: Normal vesicular breath sounds. ABDOMEN: Soft, nontender, bowel sounds heard in all quadrants. EXTREMITIES: Without cyanosis or clubbing. IMPRESSION: 1. Right-sided pneumonia, clinically improved. 2. Possible aspiration. 3. History of atrial fibrillation. 4. Hypothyroidism. 5. Gastric reflux disease. 6. Benign prostatic hypertrophy. PLAN: 1. Switch him to oral Augmentin. 2. Continue physical therapy. 3. Nutritional support. 4. Aspiration precautions. 5. DVT and stress ulcer prophylaxis. 6. Decubitus precautions.
[2018-02-22] MEDS: Aspirin 81 mg Enteric Coated Tablet PO SCH (21:06)
[2018-02-23] MEDS: Piperacillin/Tazobactam 2.25 GM in Sodium Chloride 0.9% 100 ML IVPB SCH (05:29)
[2018-02-23] MEDS: Levothyroxine Sodium 50 MCG TAB PO SCH (05:34)
[2018-02-23] MEDS: Ferrous Sulfate 325 MG TAB PO SCH (08:42)
[2018-02-23] MEDS: Potassium Chloride 20 MEQ TAB PO SCH (08:43)
[2018-02-23] MEDS: Apixaban 5 MG TAB PO SCH ×2 (08:43→20:57)
[2018-02-23] MEDS: Ezetimibe 10 MG TAB PO SCH (08:43)
[2018-02-23] MEDS: Magnesium Chloride 64 MG TAB PO SCH ×2 (08:43→20:56)
[2018-02-23] MEDS: Digoxin 0.125 MG TAB PO SCH (08:43)
--- NOTE | 2018-02-23 13:36 | PRG ---
DATE OF SERVICE: 02/23/2018 SUBJECTIVE: Mr. Martinez is doing well. Denies any complaints, resting comfortably. OBJECTIVE: VITAL SIGNS: He is afebrile, heart rate 86, respirations 20, oxygen saturation 93% on room air, bloo d pressure 151/69. CARDIOVASCULAR SYSTEM: S1, S2 plus. RESPIRATORY SYSTEM: Normal breath sounds. ABDOMEN: Soft, nontender, bowel sounds heard in all quadrants. EXTREMITIES: Without cyanosis or clubbing. Peripheral pulses are palpable. CENTRAL NERVOUS SYSTEM: Grossly nonfocal. IMPRESSION: 1. Resolving pneumonia, likely due to aspiration. 2. Improving deconditioning. 3. Dyslipidemia. 4. Hypothyroidism. 5. Coronary artery disease. PLAN: 1. Switch him to oral Augmentin. I think his white count is always going to be high due to some keesha ent aspiration happening constantly. 2. Heart healthy diet. 3. Aspiration precautions. 4. Physical therapy. 5. DVT and stress ulcer prophylaxis. 6. Decubitus precautions. 7. Discussed with patient in detail. All questions answered.
[2018-02-23] MEDS: Amoxicillin/Potassium Clav 875 MG TAB PO SCH (20:56)
[2018-02-23] MEDS: Aspirin 81 mg Enteric Coated Tablet PO SCH (20:56)
[2018-02-24 05:42] LABS: #Basophils 0.2 thou/uL (0.0-0.2); #Eosinphils 0.2 thou/uL (0.0-0.7); #Lymphocytes 2.1 thou/uL (1.20-3.40); #Monocytes 1.3 thou/uL (0.11-0.59); #Neutrophils 10.1 thou/uL (1.40-6.50); %Basophils 1.1 % (0.0-1.0); %Eosinophils 1.6 % (0.0-10.0); %Lymphocytes 15.3 % (21.0-51.0); %Neutrophils 72.9 % (42.0-75.0); Mean Corpuscular HGB CONC 32.8 g/dL (32.0-36.0); Mean Corpuscular Hemoglobin 32.1 pg (27.0-31.0); Mean Platelet Volume 7.4 fL (7.4-10.4); Platelet Count 720 thou/uL (130-400); Red Blood Cell (RBC) Count 3.73 mill/uL (4.70-6.10); White Blood Cell (WBC) Count 13.8 thou/uL (4.8-10.8)
[2018-02-24 05:53] LABS: Anion Gap 15 mmol/L (10-20); BUN (Urea Nitrogen) 21 mg/dL (8.4-25.7); Calc. Creatinine Clearance 36 mL/min (70-130); Calcium 9.6 mg/dL (7.8-10.44); Carbon Dioxide 19 mmol/L (23-31); Chloride 104 mmol/L (98-107); Estimated GFR-MDRD 49; Glucose 94 mg/dL (83-110); Potassium 4.2 mmol/L (3.5-5.1); Sodium 134 mmol/L (136-145)
[2018-02-24] MEDS: Levothyroxine Sodium 50 MCG TAB PO SCH (06:08)
[2018-02-24] MEDS: Digoxin 0.125 MG TAB PO SCH (08:50)
[2018-02-24] MEDS: Amoxicillin/Potassium Clav 875 MG TAB PO SCH ×2 (08:50→21:06)
[2018-02-24] MEDS: Potassium Chloride 20 MEQ TAB PO SCH (08:51)
[2018-02-24] MEDS: Ezetimibe 10 MG TAB PO SCH (08:51)
[2018-02-24] MEDS: Ferrous Sulfate 325 MG TAB PO SCH (08:51)
[2018-02-24] MEDS: Apixaban 5 MG TAB PO SCH ×2 (08:55→21:06)
[2018-02-24] MEDS: Magnesium Chloride 64 MG TAB PO SCH ×2 (13:19→21:08)
--- NOTE | 2018-02-24 13:58 | PRG ---
DATE OF SERVICE: 02/24/2018 SUBJECTIVE: Mr. Martinez is doing well. Denies any complaints, resting comfortably. His family is in t he room. OBJECTIVE: VITAL SIGNS: He is afebrile, heart rate 82, respirations 22, oxygen saturation 93% on room air, bloo d pressure 146/76. CARDIOVASCULAR: S1, S2 plus. RESPIRATORY: Normal vesicular breath sounds. ABDOMEN: Soft, nontender, bowel sounds heard in all quadrants. EXTREMITIES: Without cyanosis or clubbing. LABORATORY VALUES: White count is 13.8, H&H is 12 and 36.6. Chemistry shows a sodium of 134, potass ium 4.2, BUN and creatinine is 21 and 1.38. IMPRESSION: 1. Resolving right-sided pneumonia, possibly related to aspiration. 2. Persistent leukocytosis, probably due to persistent silent aspiration. 3. Improving deconditioning. 4. Dyslipidemia. 5. Hypothyroidism. 6. Coronary artery disease. PLAN: 1. Continue Augmentin for a total of 5 more days. 2. Heart Healthy diet, aspiration precautions. 3. Deep venous thrombosis and stress ulcer prophylaxis. 4. Decubitus precautions. 5. Routine laboratory values. 6. Discharge planning. 7. Dr. Deepa [place] office administration now until 9:00 p.m. Friday.
[2018-02-24] MEDS: Aspirin 81 mg Enteric Coated Tablet PO SCH (21:06)
[2018-02-25] MEDS: Levothyroxine Sodium 50 MCG TAB PO SCH (05:51)
[2018-02-25] MEDS: Potassium Chloride 20 MEQ TAB PO SCH (08:17)
[2018-02-25] MEDS: Amoxicillin/Potassium Clav 875 MG TAB PO SCH ×2 (08:17→22:00)
[2018-02-25] MEDS: Ezetimibe 10 MG TAB PO SCH (08:17)
[2018-02-25] MEDS: Magnesium Chloride 64 MG TAB PO SCH ×2 (08:17→21:30)
[2018-02-25] MEDS: Ferrous Sulfate 325 MG TAB PO SCH (08:17)
[2018-02-25] MEDS: Apixaban 5 MG TAB PO SCH ×2 (08:17→22:00)
[2018-02-25] MEDS: Digoxin 0.125 MG TAB PO SCH (08:17)
[2018-02-25] MEDS: Aspirin 81 mg Enteric Coated Tablet PO SCH (22:00)
--- NOTE | 2018-02-25 23:04 | PRG ---
DATE OF SERVICE: 02/25/2018 HISTORY OF PRESENT ILLNESS: Mr. Martinez is a very pleasant 87-year-old white male that presented to [facility] with significant weakness, shortness of breath. He was found to be in atrial fibril lation with RVR and had also pneumonia. He was started on diltiazem drip, was anticoagulated with ap ixaban and started on antibiotics. His antibiotics have been gradually adjusted. He remains with so me leukocytosis. SUBJECTIVE: Patient recognizes me from years ago, although at times he is very confused. He thinks that his son is going to pick him up tonight. He has no complaints tonight. PHYSICAL EXAMINATION: VITAL SIGNS: Reveal blood pressure this morning was 147/68, pulse 79-84, respirations 20, O2 sat 92% -93% on room air, T-max 98.0. GENERAL: This is a well-developed, well-nourished, somewhat thin white male in no apparent distress at this time. HEENT: Reveals normocephalic, nontraumatic cranium. Pupils are equal, round, and reactive. Extraoc ular movements intact. Nose and throat are slightly dry. NECK: Supple without mass, nodes, or bruits. LUNGS: Chest is clear to auscultation without rales, rhonchi, or wheezes. Patient still has occasio nal cough. HEART: Reveals an irregularly irregular rate and rhythm. No murmurs, gallops, or rubs are noted. ABDOMEN: Scaphoid, soft, nontender without organomegaly, normal bowel sounds are noted. No rebound or guarding is noted. : Deferred. EXTREMITIES: Reveal no clubbing, cyanosis, or edema. ASSESSMENT: 1. Recent pneumonia. 2. Onset of atrial fibrillation with rapid ventricular response, presently controlled rate with oral diltiazem. 3. Hypertension. 4. BPH. 5. Hyperlipidemia. 6. Confusion. PLAN: 1. Continue present medications. 2. Continue physical therapy and occupational therapy. 3. Continue present antibiotics. 4. Monitor the patient's blood pressure closely. 5. Deep venous thrombosis prophylaxis. 6. Stress ulcer prophylaxis. 7. Decubitus precautions. 8. Physical therapy and occupational therapy.
[2018-02-26] MEDS: Levothyroxine Sodium 50 MCG TAB PO SCH (06:00)
[2018-02-26] MEDS: Digoxin 0.125 MG TAB PO SCH (09:02)
[2018-02-26] MEDS: Apixaban 5 MG TAB PO SCH ×2 (09:02→22:52)
[2018-02-26] MEDS: Amoxicillin/Potassium Clav 875 MG TAB PO SCH ×2 (09:02→22:51)
[2018-02-26] MEDS: Potassium Chloride 20 MEQ TAB PO SCH (09:03)
[2018-02-26] MEDS: Ferrous Sulfate 325 MG TAB PO SCH (09:03)
[2018-02-26] MEDS: Ezetimibe 10 MG TAB PO SCH (09:03)
[2018-02-26] MEDS: Magnesium Chloride 64 MG TAB PO SCH ×2 (09:04→22:51)
--- NOTE | 2018-02-26 22:25 | PRG ---
DATE OF SERVICE: 02/26/2018 HISTORY OF PRESENT ILLNESS: Mr. Martinez is a very pleasant 87-year-old white male, who presented to [facility] with shortness of breath. He was found to be in atrial fibrillation with RVR and al so had pneumonia. He was started on diltiazem drip, anticoagulated with apixaban and started on anti biotics. He still remains with some leukocytosis. SUBJECTIVE: The patient states he is feeling somewhat better. He at times is very confused, at time s not. OBJECTIVE: VITAL SIGNS: Reveal blood pressure this morning was 149/66, pulse 76, respirations 20, O2 saturation 94% on room air, temperature max is 97.5. GENERAL: This is a well-developed, well-nourished, very pleasant, but confused white male, in no miguel arent distress at this time. HEENT: Reveals normocephalic, nontraumatic cranium. Pupils are equally round and reactive. Extraoc ular movements are intact. Nose and throat are dry. NECK: Supple, without mass, nodes, bruits. CHEST: Clear, without rales or rhonchi. Occasional wheeze is heard, but clears with cough. HEART: Reveals an irregularly irregular rate and rhythm, no murmurs, gallops or rubs are noted. ABDOMEN: Scaphoid, soft, nontender, without organomegaly, normal bowel sounds are noted. No rebound or guarding is noted. : Deferred. EXTREMITIES: Reveal no clubbing, cyanosis or edema. ASSESSMENT: 1. Recent pneumonia. 2. Atrial fibrillation with rapid ventricular response, presently controlled rate, on oral diltiazem . 3. Benign prostatic hypertrophy. 4. Hyperlipidemia. 5. Hypertension. 6. Confusion. PLAN: 1. Continue present medications. 2. Monitor the patient's blood pressure closely. 3. Stress ulcer prophylaxis. 4. DVT prophylaxis. 5. Decubitus precautions. 6. Continue physical therapy and occupational therapy.
[2018-02-26] MEDS: Aspirin 81 mg Enteric Coated Tablet PO SCH (22:52)
[2018-02-27] MEDS: Levothyroxine Sodium 50 MCG TAB PO SCH (06:26)
[2018-02-27 06:38] LABS: Anion Gap 16 mmol/L (10-20); BUN (Urea Nitrogen) 35 mg/dL (8.4-25.7); Calc. Creatinine Clearance 29 mL/min (70-130); Carbon Dioxide 21 mmol/L (23-31); Chloride 102 mmol/L (98-107); Estimated GFR-MDRD 38; Glucose 90 mg/dL (83-110); Potassium 4.7 mmol/L (3.5-5.1); Sodium 134 mmol/L (136-145)
[2018-02-27] MEDS: Magnesium Chloride 64 MG TAB PO SCH ×2 (08:22→21:42)
[2018-02-27] MEDS: Ezetimibe 10 MG TAB PO SCH (08:23)
[2018-02-27] MEDS: Amoxicillin/Potassium Clav 875 MG TAB PO SCH ×2 (08:23→21:42)
[2018-02-27] MEDS: Apixaban 5 MG TAB PO SCH ×2 (08:23→21:42)
[2018-02-27] MEDS: Ferrous Sulfate 325 MG TAB PO SCH (08:23)
[2018-02-27] MEDS: Potassium Chloride 20 MEQ TAB PO SCH (08:23)
[2018-02-27] MEDS: Digoxin 0.125 MG TAB PO SCH (08:24)
[2018-02-27 08:42] LABS: Hemoglobin 12.1 g/dL (14.0-18.0); Lymphocytes 26 % (21-51); MDiff Complete? YES; Mean Corpuscular HGB CONC 31.9 g/dL (32.0-36.0); Mean Corpuscular Hemoglobin 30.9 pg (27.0-31.0); Mean Corpuscular Volume 96.9 fl (80.0-94.0); Mean Platelet Volume 6.3 fL (7.4-10.4); Monocytes 4 % (0-10); Neutrophil 70 % (42-75); PLT Morphology Comment Appears Increased; Platelet Count 614 thou/uL (130-400); RBC Distribution Width 12.4 % (11.5-14.5); RBC Morphology Normal; White Blood Cell (WBC) Count 13.6 thou/uL (4.8-10.8)
[2018-02-27] MEDS: Aspirin 81 mg Enteric Coated Tablet PO SCH (21:42)
--- NOTE | 2018-02-27 22:58 | PRG ---
DATE OF ADMISSION: 02/16/2018 DATE OF SERVICE: 02/27/2018 Mr. Martinez is a very pleasant 87-year-old white male that presented to [facility] with shortne ss of breath. He was found to be in atrial fibrillation with RVR and also had pneumonia. Started on diltiazem drip and anticoagulated with apixaban and started on oral antibiotics. He still continues to have a leukocytosis even to this day. SUBJECTIVE: The patient states he feels well, he has several questions about his medications, which he wonders if they really hard medicines. OBJECTIVE: VITAL SIGNS: Blood pressure is 154/68, pulse 74 to 84, respirations 21, O2 sat 94% to 96% on room ai r, T-max 96.8. GENERAL: This is a well-developed, well-nourished, very pleasant white male in no apparent distress at this time. HEENT: Reveals normocephalic, nontraumatic cranium. Pupils are equally round and reactive. Extraoc ular movements intact. Nose and throat are slightly dry. NECK: Supple, without mass, nodes or bruits. LUNGS: Chest is clear to auscultation. No rales, no rhonchi, no wheezes are heard. CARDIOVASCULAR: An irregularly irregular rate and rhythm. No murmurs, gallops, or rubs are noted. ABDOMEN: Soft, scaphoid, nontender, without organomegaly, normal bowel sounds are noted. No rebound or guarding is noted. : Deferred. EXTREMITIES: Reveal no clubbing, cyanosis, or edema. LABORATORY DATA: Reveals white count 13,600 with a hemoglobin 12.1, hematocrit 37.8, platelet count 614,000. Electrolytes reveal sodium 134, potassium 4.7, chloride 102, carbon dioxide 21 with a BUN of 35, crea tinine 1.70. The patient is encouraged to drink more liquids. ASSESSMENT: 1. Recent pneumonia. 2. Atrial fibrillation with rapid ventricular response, presently controlled rate on oral diltiazem. 3. Benign prostatic hypertrophy. 4. Hyperlipidemia. 5. Hypertension. 6. Confusion. PLAN: 1. Continue present medications. 2. Monitor patient's blood pressure closely. 3. Monitor the patient for ulcer prophylaxis. 4. Stress ulcer prophylaxis. 5. Deep venous thrombosis prophylaxis. 6. Decubitus precautions. 7. Continue physical therapy and occupational therapy.
[2018-02-28 05:08] LABS: Hemoglobin 12.9 g/dL (14.0-18.0); Platelet Count 570 thou/uL (130-400)
[2018-02-28] MEDS: Levothyroxine Sodium 50 MCG TAB PO SCH (06:05)
[2018-02-28] MEDS: Amoxicillin/Potassium Clav 875 MG TAB PO SCH ×2 (08:30→22:43)
[2018-02-28] MEDS: Ferrous Sulfate 325 MG TAB PO SCH (08:30)
[2018-02-28] MEDS: Potassium Chloride 20 MEQ TAB PO SCH (08:31)
[2018-02-28] MEDS: Apixaban 5 MG TAB PO SCH ×2 (08:31→22:43)
[2018-02-28] MEDS: Ezetimibe 10 MG TAB PO SCH (08:32)
[2018-02-28] MEDS: Digoxin 0.125 MG TAB PO SCH (08:32)
[2018-02-28] MEDS: Magnesium Chloride 64 MG TAB PO SCH ×2 (09:00→22:42)
--- NOTE | 2018-02-28 16:52 | PRG ---
DATE OF SERVICE: 02/28/2018 DATE OF ADMISSION: 02/16/2018 HISTORY OF PRESENT ILLNESS: Mr. Martinez is a very pleasant 87-year-old white male who was found in atri al fibrillation when he presented herself to the ER at [place]. He was in RVR and also had pneumo holden. He is started on diltiazem drip and anticoagulated with apixaban. He was started on oral antib iotics, eventually stabilized and transferred to [facility] for continued therapy. SUBJECTIVE: The patient states he is doing well, but he really does not like what they had today for lunch. He states he is done in eating. PHYSICAL EXAMINATION: VITAL SIGNS: Reveal blood pressure today was 166/75, pulse 87, respirations 20, O2 saturation 94% on room air, T-max 98.9. GENERAL: This is a well-developed, well-nourished, thin white male in no apparent distress at this [facility]. HEENT: Reveals normocephalic and nontraumatic cranium. Pupils are equally round and reactive. Extr aocular movements are intact. Nose and throat is slight dry. NECK: Supple, without mass, nodes or bruits. CHEST: Clear to auscultation. No rales, rhonchi, wheezes or cough is heard. HEART: Reveals an irregularly irregular rate and rhythm. No murmurs, gallops or rubs are noted. ABDOMEN: Obese, soft, nontender, without organomegaly, normal bowel sounds are noted. No rebound or guarding is noted. GENITOURINARY: Deferred. EXTREMITIES: Reveal no clubbing, cyanosis or edema. ASSESSMENT: 1. Recent pneumonia. 2. Atrial fibrillation with rapid ventricular response, presently controlled rate and on oral diltia zem. 3. Benign prostatic hypertrophy. 4. Hypertension. 5. Hyperlipidemia. 6. Confusion. PLAN: 1. Monitor the patient's heart rate for RVR. 2. Monitor the patient's blood pressure closely. 3. Encourage the patient to participate in therapy. 4. Continue present medications. 5. Stress ulcer prophylaxis. 6. DVT prophylaxis. 7. Decubitus precautions. 8. Continue physical therapy and occupational therapy.
[2018-02-28] MEDS: Aspirin 81 mg Enteric Coated Tablet PO SCH (22:44)
[2018-03-01] MEDS: Levothyroxine Sodium 50 MCG TAB PO SCH (06:20)
[2018-03-01 06:35] LABS: Hemoglobin 13.1 g/dL (14.0-18.0); Platelet Count 503 thou/uL (130-400)
[2018-03-01] MEDS: Magnesium Chloride 64 MG TAB PO SCH ×2 (09:07→21:17)
[2018-03-01] MEDS: Amoxicillin/Potassium Clav 875 MG TAB PO SCH ×2 (09:08→21:18)
[2018-03-01] MEDS: Ferrous Sulfate 325 MG TAB PO SCH (09:09)
[2018-03-01] MEDS: Digoxin 0.125 MG TAB PO SCH (09:10)
[2018-03-01] MEDS: Ezetimibe 10 MG TAB PO SCH (09:10)
[2018-03-01] MEDS: Potassium Chloride 20 MEQ TAB PO SCH (09:10)
[2018-03-01] MEDS: Apixaban 5 MG TAB PO SCH ×2 (09:17→21:18)
[2018-03-01] MEDS: Aspirin 81 mg Enteric Coated Tablet PO SCH (21:18)
--- NOTE | 2018-03-01 22:24 | PRG ---
DATE OF SERVICE: 03/01/2018 HISTORY OF PRESENT ILLNESS: Mr. Martinez is a very pleasant 87-year-old white male who presented himself to the ER at [facility]. He was found to be in atrial fibrillation with RVR. He also had pneumonia . He was started on diltiazem drip, anticoagulated on apixaban, and started on oral antibiotics. He stabilized and transferred to [facility] for continued care and physical therapy and occupational therapy. SUBJECTIVE: The patient states he is doing better. He feels better. He feels a little stronger. H e still has very poor appetite. OBJECTIVE: VITAL SIGNS: Revealed blood pressure 160/74, pulse 80, respirations 20, O2 saturation 94% on room ai r, T-max 98.7. GENERAL: On physical exam, this is a well-developed, well-nourished, very pleasant white male in no apparent distress at this time. HEENT: Reveals normocephalic, nontraumatic cranium. Pupils equal, round, and reactive. Extraocular movements intact. Nose and throat are clear, but dry. NECK: Supple without mass, nodes, or bruits. CHEST: Clear to auscultation. Breath sounds are very distant. No rales, rhonchi, wheezes, or cough is heard. HEART: Reveals an irregularly irregular rate and rhythm. No murmurs, gallops, or rubs are noted. ABDOMEN: Obese, soft, and nontender without organomegaly. Normal bowel sounds are noted. No reboun d or guarding is noted. : Deferred. EXTREMITIES: Revealed no clubbing, cyanosis, or edema. ASSESSMENT: 1. Recent pneumonia. 2. Atrial fibrillation with rapid ventricular response, presently controlled rate on oral diltiazem. 3. Benign prostatic hypertrophy. 4. Hypertension. 5. Hyperlipidemia. 6. Confusion. PLAN: 1. Continue to monitor the patient's heart rate for RVR. 2. Monitor the patient's blood pressure closely. 3. Encourage the patient to participate in therapy. 4. Continue present medications. 5. Stress ulcer prophylaxis. 6. DVT prophylaxis. 7. Decubitus precautions. 8. Continue PT and OT.
[2018-03-02 05:15] LABS: Platelet Count 492 thou/uL (130-400)
[2018-03-02] MEDS: Levothyroxine Sodium 50 MCG TAB PO SCH (06:01)
[2018-03-02] MEDS: Ferrous Sulfate 325 MG TAB PO SCH (08:07)
[2018-03-02] MEDS: Apixaban 5 MG TAB PO SCH ×2 (08:07→21:00)
[2018-03-02] MEDS: Digoxin 0.125 MG TAB PO SCH (08:07)
[2018-03-02] MEDS: Amoxicillin/Potassium Clav 875 MG TAB PO SCH ×2 (08:07→21:00)
[2018-03-02] MEDS: Potassium Chloride 20 MEQ TAB PO SCH (08:07)
[2018-03-02] MEDS: Ezetimibe 10 MG TAB PO SCH (08:08)
[2018-03-02] MEDS: Magnesium Chloride 64 MG TAB PO SCH ×2 (08:08→21:00)
[2018-03-02] MEDS: Aspirin 81 mg Enteric Coated Tablet PO SCH (21:00)
--- NOTE | 2018-03-02 21:06 | PRG ---
DATE OF SERVICE: 03/02/2018 SUBJECTIVE: The patient lying in bed, awake and alert, appears weak, but in no acute distress, orien yasmin x3 and cooperative. OBJECTIVE: Shows blood pressure is 147/66, O2 sats 92% on room air, pulse 82. He is afebrile. LABORATORY DATA: Shows white count still elevated at 13,600, hematocrit 39, hemoglobin 13, platelet count 492,000. Creatinine is slowly increasing to 1.81, GFR down to 36 from 50. Digoxin level is 1. 09. ASSESSMENT: 1. Resolving right-sided pneumonia with persistent elevated white count, on Augmentin. We will repe at CBC. 2. Persistent leukocytosis. We will repeat in the morning. 3. Improving deconditioning. 4. Stable coronary artery disease, status post recent [id number] myocardial infarction. PLAN: Repeat CBC. Possibly repeat speech therapy consult. Continue PT, OT. Continue Augmentin unt il tomorrow.
[2018-03-03 05:47] LABS: #Basophils 0.1 thou/uL (0.0-0.2); #Eosinphils 0.1 thou/uL (0.0-0.7); #Monocytes 0.7 thou/uL (0.11-0.59); #Neutrophils 6.3 thou/uL (1.40-6.50); %Basophils 1.2 % (0.0-1.0); %Eosinophils 1.3 % (0.0-10.0); %Lymphocytes 21.7 % (21.0-51.0); %Monocytes 7.4 % (0.0-10.0); %Neutrophils 68.4 % (42.0-75.0); Mean Corpuscular HGB CONC 32.7 g/dL (32.0-36.0); Mean Corpuscular Hemoglobin 31.2 pg (27.0-31.0); Mean Corpuscular Volume 95.4 fl (80.0-94.0); Mean Platelet Volume 7.6 fL (7.4-10.4); Platelet Count 425 thou/uL (130-400); RBC Distribution Width 12.2 % (11.5-14.5); Red Blood Cell (RBC) Count 3.84 mill/uL (4.70-6.10); White Blood Cell (WBC) Count 9.2 thou/uL (4.8-10.8)
[2018-03-03 05:55] LABS: Anion Gap 15 mmol/L (10-20); BUN (Urea Nitrogen) 40 mg/dL (8.4-25.7); Calc. Creatinine Clearance 30 mL/min (70-130); Calcium 9.6 mg/dL (7.8-10.44); Carbon Dioxide 21 mmol/L (23-31); Chloride 102 mmol/L (98-107); Estimated GFR-MDRD 39; Glucose 94 mg/dL (83-110); Potassium 4.9 mmol/L (3.5-5.1); Sodium 133 mmol/L (136-145)
[2018-03-03] MEDS: Levothyroxine Sodium 50 MCG TAB PO SCH (06:13)
[2018-03-03] MEDS: Ferrous Sulfate 325 MG TAB PO SCH (08:38)
[2018-03-03] MEDS: Ezetimibe 10 MG TAB PO SCH (08:39)
[2018-03-03] MEDS: Magnesium Chloride 64 MG TAB PO SCH ×2 (08:39→21:19)
[2018-03-03] MEDS: Apixaban 5 MG TAB PO SCH ×2 (08:39→21:20)
[2018-03-03] MEDS: Digoxin 0.125 MG TAB PO SCH (08:39)
[2018-03-03] MEDS: Potassium Chloride 20 MEQ TAB PO SCH (08:40)
[2018-03-03] MEDS: Amoxicillin/Potassium Clav 875 MG TAB PO SCH ×2 (08:41→21:19)
--- NOTE | 2018-03-03 08:49 | CT ---
CT BRAIN WITHOUT CONTRAST: History: Dizziness. Comparison: 02-15-18 FINDINGS: No acute territory infarct or hemorrhage. No midline shift or mass effect. Ventricular size and extra axial CSF spaces are normal. Paranasal sinuses and mastoids are clear. Moderate atrophy. Old lacunar infarcts. IMPRESSION: No acute intracranial abnormality. No significant change from 02-15-18 exam. POS: [facility]
[2018-03-03] MEDS: Meclizine HCl 25 MG TAB PO PRN (17:18)
--- NOTE | 2018-03-03 19:21 | PRG ---
DATE OF SERVICE: 03/03/2018 SUBJECTIVE: The patient is sleeping, awakens easily, is oriented well. No complaints except for occa sional dizziness, which the nurse confirms. Denying any weakness, numbness or tingling in arms or le gs, chest pain, or shortness of breath. OBJECTIVE: VITAL SIGNS: Pulse is 80, O2 saturation is 97% on room air, blood pressure 145/63. LUNGS: Clear. CARDIAC: Regular rhythm. NEUROLOGIC: No focal finding. ASSESSMENT: 1. Resolving non-ST myocardial infarction. No evidence for recurrent ischemia. 2. Recurrent vertigo, but with recent negative CT scan showing no change. 3. Resolving right-sided pneumonia with normal white count today of 9200, hematocrit 36, hemoglobin 12. 4. Resolving acute on chronic renal failure with creatinine down to 1.67 and BUN of 40, from previou s high of 1.81 yesterday. 5. Mild hyponatremia, stable. PLAN: Continue PT/OT. Continue Augmentin until 07/06/2018. Discuss with PT and OT about discharge planning.
[2018-03-03] MEDS: Aspirin 81 mg Enteric Coated Tablet PO SCH (21:19)
[2018-03-04] MEDS: Levothyroxine Sodium 50 MCG TAB PO SCH (05:32)
[2018-03-04] MEDS: Potassium Chloride 20 MEQ TAB PO SCH (08:46)
[2018-03-04] MEDS: Magnesium Chloride 64 MG TAB PO SCH ×2 (08:46→20:47)
[2018-03-04] MEDS: Ezetimibe 10 MG TAB PO SCH (08:46)
[2018-03-04] MEDS: Apixaban 5 MG TAB PO SCH ×2 (08:46→20:46)
[2018-03-04] MEDS: Ferrous Sulfate 325 MG TAB PO SCH (08:48)
[2018-03-04] MEDS: Digoxin 0.125 MG TAB PO SCH (08:48)
[2018-03-04] MEDS: Amoxicillin/Potassium Clav 875 MG TAB PO SCH ×2 (10:13→20:47)
[2018-03-04] MEDS: Aspirin 81 mg Enteric Coated Tablet PO SCH (20:46)
[2018-03-05] MEDS: Levothyroxine Sodium 50 MCG TAB PO SCH (05:32)
[2018-03-05] MEDS: Magnesium Chloride 64 MG TAB PO SCH ×2 (08:30→20:51)
[2018-03-05] MEDS: Ezetimibe 10 MG TAB PO SCH (08:30)
[2018-03-05] MEDS: Apixaban 5 MG TAB PO SCH ×2 (08:30→20:50)
[2018-03-05] MEDS: Digoxin 0.125 MG TAB PO SCH (08:31)
[2018-03-05] MEDS: Potassium Chloride 20 MEQ TAB PO SCH (08:31)
[2018-03-05] MEDS: Ferrous Sulfate 325 MG TAB PO SCH (08:31)
[2018-03-05] MEDS: Amoxicillin/Potassium Clav 875 MG TAB PO SCH ×2 (08:32→20:50)
--- NOTE | 2018-03-05 08:32 | PRG ---
DATE OF SERVICE: 03/04/2018 SUBJECTIVE: The patient feels well. He is awake and alert, having difficulty with hearing and some mild dizziness, but is having increasing strength. She is denying chest pain, shortness of breath. OBJECTIVE: VITAL SIGNS: Blood pressure 135/64, temperature 97.6, pulse 82, respirations 18, O2 sats 96% on room air. LUNGS: Clear. CARDIAC: Shows regular rhythm. No gallops or murmurs. SKIN AND EXTREMITIES: Show no edema, clubbing, cyanosis. NEUROLOGICAL: Shows no focal finding. ASSESSMENT: 1. Improving deconditioning, resolved non-ST myocardial infarction. 2. Persistent vertigo with negative CT scan of right-sided pneumonia, resolving acute on chronic nohelia al failure. PLAN: Finish Augmentin on 03/06/2018. Continue PT, OT. Discuss discharge planning with son and PT, and he does not appear to be able to maintain ADLs, although improving.
[2018-03-05] MEDS: Acetaminophen 500 MG TAB PO PRN ×2 (16:02→20:51)
[2018-03-05] MEDS: Aspirin 81 mg Enteric Coated Tablet PO SCH (20:50)
[2018-03-06] MEDS: Levothyroxine Sodium 50 MCG TAB PO SCH (06:22)
[2018-03-06] MEDS: Potassium Chloride 20 MEQ TAB PO SCH (08:35)
[2018-03-06] MEDS: Magnesium Chloride 64 MG TAB PO SCH ×2 (08:35→20:34)
[2018-03-06] MEDS: Digoxin 0.125 MG TAB PO SCH (08:36)
[2018-03-06] MEDS: Ferrous Sulfate 325 MG TAB PO SCH (08:36)
[2018-03-06] MEDS: Ezetimibe 10 MG TAB PO SCH (08:36)
[2018-03-06] MEDS: Amoxicillin/Potassium Clav 875 MG TAB PO SCH ×2 (08:36→20:30)
[2018-03-06] MEDS: Apixaban 5 MG TAB PO SCH ×2 (08:37→20:31)
[2018-03-06] MEDS: Meclizine HCl 25 MG TAB PO PRN ×2 (09:20→17:21)
[2018-03-06] MEDS: Acetaminophen 500 MG TAB PO PRN (17:20)
[2018-03-06] MEDS: Aspirin 81 mg Enteric Coated Tablet PO SCH (20:30)
--- NOTE | 2018-03-06 22:32 | PRG ---
DATE OF SERVICE: 03/06/2018 SUBJECTIVE: The patient feels well, lying in bed, no complaints of dizziness or weakness. States, h e is ready to do therapy and not to go home. OBJECTIVE: VITAL SIGNS: Shows blood pressures 120/83, pulse is 68, O2 sats 94, temperature 98.2, pulse 68, resp irations 18. LUNGS: Clear. CARDIAC EXAMINATION: Showed regular rhythm. No gallops or murmurs. ABDOMEN: Soft, nontender with no masses or organomegaly. NEUROLOGICAL: Intact. ASSESSMENT: 1. Resolving right-sided pneumonia. 2. Resolving acute on chronic renal failure. 3. Resolving non-ST myocardial infarction. 4. Persistent vertigo, but improved with negative CT scan. 5. Improving deconditioning. PLAN: Finish antibiotics tomorrow. Continue PT, OT. I have discussion with son. We will discharge the patient home when stable as he feels that the family can care for him.
--- NOTE | 2018-03-06 22:45 | PRG ---
DATE OF SERVICE: 03/06/2018 SUBJECTIVE: The patient feels well without complaints of dizziness, shortness of breath or chest jose n, headache. OBJECTIVE: VITAL SIGNS: Shows blood pressure is 146/67, temperature 96, pulse 61, respirations 18, O2 sats 95% on room air. LUNGS: Clear. CARDIOVASCULAR: Cardiac examination shows regular rhythm. ABDOMEN: Soft and nontender. SKIN AND EXTREMITIES: Showed no edema, no clubbing, cyanosis. Physical therapy states the patient has supervision on transfer, walking 190 and in 62 feet, the only problem with fatigue and discoordination, but improving daily with improvement after being given mec lizine. ASSESSMENT: 1. Resolving vertigo, on meclizine. 2. Improving deconditioning. 3. Stable non-ST myocardial infarction. No evidence of recurrence. 4. Resolved pneumonia, off antibiotics today.
[2018-03-07] MEDS: Levothyroxine Sodium 50 MCG TAB PO SCH (05:50)
[2018-03-07] MEDS: Magnesium Chloride 64 MG TAB PO SCH ×2 (08:35→20:35)
[2018-03-07] MEDS: Apixaban 5 MG TAB PO SCH ×2 (08:36→20:35)
[2018-03-07] MEDS: Digoxin 0.125 MG TAB PO SCH (08:36)
[2018-03-07] MEDS: Ferrous Sulfate 325 MG TAB PO SCH (08:36)
[2018-03-07] MEDS: Ezetimibe 10 MG TAB PO SCH (08:36)
[2018-03-07] MEDS: Meclizine HCl 25 MG TAB PO PRN ×2 (08:36→20:35)
[2018-03-07] MEDS: Acetaminophen 500 MG TAB PO PRN (08:37)
[2018-03-07] MEDS: Potassium Chloride 20 MEQ TAB PO SCH (08:37)
[2018-03-07] MEDS: Aspirin 81 mg Enteric Coated Tablet PO SCH (20:35)
[2018-03-08] MEDS: Levothyroxine Sodium 50 MCG TAB PO SCH (06:13)
[2018-03-08] MEDS: Potassium Chloride 20 MEQ TAB PO SCH (08:27)
[2018-03-08] MEDS: Digoxin 0.125 MG TAB PO SCH (08:27)
[2018-03-08] MEDS: Ferrous Sulfate 325 MG TAB PO SCH (08:27)
[2018-03-08] MEDS: Ezetimibe 10 MG TAB PO SCH (08:27)
[2018-03-08] MEDS: Apixaban 5 MG TAB PO SCH ×2 (08:28→21:30)
[2018-03-08] MEDS: Magnesium Chloride 64 MG TAB PO SCH ×2 (08:28→21:31)
--- NOTE | 2018-03-08 10:32 | PRG ---
DATE OF SERVICE: 03/07/2018 SUBJECTIVE: The patient feels well, lying in bed, resting well, no complaints of shortness of breath or dizziness, feels he is getting stronger. Sleeping well and more alert. OBJECTIVE: VITAL SIGNS: His blood pressure is 135/63, temperature is 95, pulse 72, respirations 20, O2 sats 97% on room air. LUNGS: Clear. CARDIAC EXAMINATION: Shows regular rhythm. ABDOMEN: Soft and nontender. SKIN AND EXTREMITIES: Display no edema, clubbing, cyanosis. NEUROLOGICAL: Shows no focal findings. Most recent PT evaluation yesterday showed that the patient was improving and walked down the arango with minimal supervision and did appear to improve after being given meclizine. ASSESSMENT: 1. Resolved non-ST elevation myocardial infarction with no evidence of recurrence. 2. Resolved pneumonia, off antibiotics two days. 3. Improving deconditioning. 4. Improving vertigo, on meclizine. PLAN: Continue PT, OT next week. Discussed discharge planning with son. Continue meclizine for mos t likely vertigo secondary to vestibular dysfunction, he has no evidence of stroke.
--- NOTE | 2018-03-08 12:28 | PRG ---
DATE OF SERVICE: 03/08/2018 SUBJECTIVE: The patient feels well, sitting in bed, cannot hear secondary to lack of hearing aid. D enies any shortness of breath, chest pain, palpitations, or weakness. OBJECTIVE: VITAL SIGNS: Blood pressure 150/67, temperature 97, pulse 67, respirations 18, O2 sats 96%. LUNGS: Clear. CARDIAC: Regular rhythm. No gallops or murmurs. ABDOMEN: Soft, nontender. SKIN AND EXTREMITIES: No edema. ASSESSMENT: 1. Resolved non-ST elevation myocardial infarction. No evidence of recurrent ischemia. 2. Resolved pneumonia, off antibiotics. 3. Improving deconditioning, ready for more therapy tomorrow. 4. Improving vertigo, meclizine, most likely due to vestibular dysfunction. 5. Resolved atrial fibrillation with rapid ventricular rate with rate control and anticoagulation. PLAN: Obtain EKG today. Continue PT, OT. Continue meclizine. Discuss discharge planning with son.
[2018-03-08] MEDS: Aspirin 81 mg Enteric Coated Tablet PO SCH (21:31)
[2018-03-09] MEDS: Levothyroxine Sodium 50 MCG TAB PO SCH (05:45)
[2018-03-09] MEDS: Ezetimibe 10 MG TAB PO SCH (08:29)
[2018-03-09] MEDS: Digoxin 0.125 MG TAB PO SCH (08:29)
[2018-03-09] MEDS: Magnesium Chloride 64 MG TAB PO SCH ×2 (08:29→20:30)
[2018-03-09] MEDS: Ferrous Sulfate 325 MG TAB PO SCH (08:30)
[2018-03-09] MEDS: Potassium Chloride 20 MEQ TAB PO SCH (08:30)
[2018-03-09] MEDS: Apixaban 5 MG TAB PO SCH ×2 (08:30→20:28)
--- NOTE | 2018-03-09 19:47 | PRG ---
DATE OF SERVICE: 03/09/2018 SUBJECTIVE: The patient feels well, has definitely decreased hearing, but is getting stronger. He i s still having problems with some cognition and confusion, which concerning PT. I discussed this wit h the son who states that he will monitor his dad at home with close observation. OBJECTIVE: VITAL SIGNS: Shows his temperature is 98.3, pulse 74, respirations 23, blood pressure 124/68. LUNGS: Clear. CARDIAC: Shows regular rhythm. ABDOMEN: Soft, nontender. SKIN AND EXTREMITIES: Show no edema. NEUROLOGIC: Shows no focal findings. ASSESSMENT: Resolving deconditioning; stable vertigo, improved with meclizine; resolved non-ST myoca rdial infarction; mild cognitive deficits, will be monitored by son. PLAN: Continue PT, OT. Plan for discharge on 03/12/2018.
[2018-03-09] MEDS: Aspirin 81 mg Enteric Coated Tablet PO SCH (20:29)
[2018-03-10 05:53] LABS: Hemoglobin 12.6 g/dL (14.0-18.0); Platelet Count 392 thou/uL (130-400)
[2018-03-10] MEDS: Levothyroxine Sodium 50 MCG TAB PO SCH (06:00)
[2018-03-10] MEDS: Ezetimibe 10 MG TAB PO SCH (08:30)
[2018-03-10] MEDS: Digoxin 0.125 MG TAB PO SCH (08:31)
[2018-03-10] MEDS: Apixaban 5 MG TAB PO SCH ×2 (08:31→20:57)
[2018-03-10] MEDS: Potassium Chloride 20 MEQ TAB PO SCH (08:32)
[2018-03-10] MEDS: Ferrous Sulfate 325 MG TAB PO SCH (08:32)
[2018-03-10] MEDS: Magnesium Chloride 64 MG TAB PO SCH ×2 (08:33→20:59)
[2018-03-10] MEDS: Acetaminophen 500 MG TAB PO PRN (10:42)
--- NOTE | 2018-03-10 20:46 | PRG ---
DATE OF SERVICE: 03/10/2018 SUBJECTIVE: Patient feels well, sitting up in the bed, asking when he can be discharged home. Physi dilan therapy states that he is physically ready, but mentally not ready to live alone. OBJECTIVE: Shows blood pressure is 142/65, temperature is 97, pulse 85, respirations 23, O2 sats 97% on room air. Patient has been discussed in team conferences, feels ready to be discharged here Mond ay of next week after family has arranged for placement. ASSESSMENT: 1. Resolving non-ST myocardial infarction. 2. Improving deconditioning. 3. Dementia, possibly increased in the hospital and transferred to skilled unit next week when famil y arranges. PLAN: Continue PT, OT. Continue to monitor for signs of decompensation of myocardial infarction.
[2018-03-10] MEDS: Meclizine HCl 25 MG TAB PO PRN (20:59)
[2018-03-10] MEDS: Aspirin 81 mg Enteric Coated Tablet PO SCH (20:59)
[2018-03-11] MEDS: Levothyroxine Sodium 50 MCG TAB PO SCH (05:06)
[2018-03-11] MEDS: Ferrous Sulfate 325 MG TAB PO SCH (09:34)
[2018-03-11] MEDS: Apixaban 5 MG TAB PO SCH ×2 (09:34→21:43)
[2018-03-11] MEDS: Acetaminophen 500 MG TAB PO PRN (09:35)
[2018-03-11] MEDS: Digoxin 0.125 MG TAB PO SCH (09:35)
[2018-03-11] MEDS: Potassium Chloride 20 MEQ TAB PO SCH (09:35)
[2018-03-11] MEDS: Ezetimibe 10 MG TAB PO SCH (09:36)
[2018-03-11] MEDS: Magnesium Chloride 64 MG TAB PO SCH ×2 (09:36→21:44)
[2018-03-11] MEDS ORDERED: HYDROcodone/Acetaminophen 5/325 mg Tablet PO SCH (14:30)
--- NOTE | 2018-03-11 16:51 | RAD ---
THREE VIEWS OF THE CERVICAL SPINE: 03/11/18 COMPARISON: None. HISTORY: Worsening neck pain. FINDINGS: Three views cervical spine shows normal height and alignment of the vertebral bodies without fracture or subluxation. There are degenerative changes in the lower cervical spine with intervertebral disc space narrowing and osteophyte formation. No prevertebral soft tissue swelling is seen. IMPRESSION: Degenerative changes of the lower cervical spine without acute osseous abnormality. POS: [facility]
--- NOTE | 2018-03-11 20:32 | PRG ---
DATE OF SERVICE: 03/11/2018 SUBJECTIVE: The patient feels well, but confused, complaining of neck pain limiting with his therapy . OBJECTIVE: VITAL SIGNS: Temperature is 97, pulse 80, respirations 20, O2 sats 97% on room air, blood pressure 1 40/66. NECK: Neck is tender with muscle spasms. LUNGS: Clear. CARDIAC: Shows regular rhythm. LABORATORY DATA: Hemoglobin 12.6, hematocrit 38. X-ray of the cervical spine showed significant deg enerative joint disease and disk disease. ASSESSMENT: 1. Resolving non-ST myocardial infarction with no evidence for recurrence. 2. Significant neck pain from cervical degenerative joint and disk disease. 3. Persistent dementia in hands by hospital delirium and sensorineural hearing loss. 4. Deconditioning, improving greatly with increased strength. PLAN: Hydrocodone 5/325 today for pain. Continue PT, OT. Monitor for signs of increased confusion with hydrocodone. Arrange for residential placement.
[2018-03-11] MEDS: Aspirin 81 mg Enteric Coated Tablet PO SCH (21:43)
[2018-03-11] MEDS: Meclizine HCl 25 MG TAB PO PRN (21:44)
[2018-03-12] MEDS: Levothyroxine Sodium 50 MCG TAB PO SCH (06:32)
[2018-03-12] MEDS: Acetaminophen 500 MG TAB PO PRN ×2 (09:13→21:07)
[2018-03-12] MEDS: Apixaban 5 MG TAB PO SCH ×2 (09:13→21:07)
[2018-03-12] MEDS: Ezetimibe 10 MG TAB PO SCH (09:13)
[2018-03-12] MEDS: Ferrous Sulfate 325 MG TAB PO SCH (09:14)
[2018-03-12] MEDS: Potassium Chloride 20 MEQ TAB PO SCH (09:14)
[2018-03-12] MEDS: Digoxin 0.125 MG TAB PO SCH (09:15)
[2018-03-12] MEDS: Magnesium Chloride 64 MG TAB PO SCH ×2 (09:15→21:07)
[2018-03-12] MEDS: HYDROcodone/Acetaminophen 5/325 mg Tablet PO PRN (16:14)
[2018-03-12] MEDS: Cyclobenzaprine 10 MG TAB PO PRN (16:15)
--- NOTE | 2018-03-12 20:13 | PRG ---
DATE OF SERVICE: 03/12/2018 SUBJECTIVE: The patient is sleeping, but awakens easily states that he is still having neck pain wit h some minimal improvement, but did appear to be slightly slurred. This morning after taking hydroco done, has been cooperating with therapy except for complaints of neck pain and has been refusing. OBJECTIVE: VITAL SIGNS: Blood pressure is 129/64, temperature is 97, pulse 71, respirations 20, O2 sats 96%. LUNGS: Clear. CARDIAC EXAMINATION: Shows regular rhythm. ABDOMEN: Soft, nontender. Therapy notes state that, patient walks 120 feet 3 times daily. Appeared to be stronger making progr ess. Pain problem with cognition. LABORATORY DATA: Hemoglobin ranges from 12 to 13. ASSESSMENT: 1. Stable status post non-ST myocardial with no evidence of recurrence. 2. Improving physical deconditioning. 3. Persistent cognitive deficits, but appears to be improving. The family making arrangements. 4. Spasms secondary to cervical degenerative joint disease. We will start on Flexeril 10 mg 3 times daily. As unable to tolerate narcotics.
[2018-03-12] MEDS: Aspirin 81 mg Enteric Coated Tablet PO SCH (21:07)
[2018-03-13 05:50] LABS: Digoxin 1.74 ng/mL (0.8-2.0)
[2018-03-13] MEDS: Levothyroxine Sodium 50 MCG TAB PO SCH (06:06)
[2018-03-13] MEDS: Ferrous Sulfate 325 MG TAB PO SCH (08:39)
[2018-03-13] MEDS: Digoxin 0.125 MG TAB PO SCH (08:39)
[2018-03-13] MEDS: Ezetimibe 10 MG TAB PO SCH (08:39)
[2018-03-13] MEDS: Potassium Chloride 20 MEQ TAB PO SCH (08:40)
[2018-03-13] MEDS: Apixaban 5 MG TAB PO SCH ×2 (08:40→20:41)
[2018-03-13] MEDS: HYDROcodone/Acetaminophen 5/325 mg Tablet PO PRN (09:57)
[2018-03-13] MEDS: Magnesium Chloride 64 MG TAB PO SCH ×2 (11:03→20:56)
--- NOTE | 2018-03-13 15:03 | PRG ---
DATE OF SERVICE: 03/13/2018 SUBJECTIVE: The patient sitting on the chair, feels well with no complaints of neck pain, headache, feel stronger and ate well, asking when he can be discharged home. OBJECTIVE: VITAL SIGNS: Blood pressure 127/59, pulse 75, O2 sats 96% on room air. LUNGS: Clear. CARDIAC: Shows regular rhythm. ABDOMEN: Soft, nontender. SKIN/EXTREMITIES: Show no edema, clubbing, or cyanosis. NEUROLOGICAL: Intact. ASSESSMENT: 1. Stable status post non-ST myocardial infarction with no evidence of recurrence. 2. Resolved atrial fibrillation, no evidence of recurrence. 3. Improving deconditioning. 4. Persistent cognitive defects, but appears to be stable. 5. Resolving cervical spasm in the neck. PLAN: We will change cyclobenzaprine to p.r.n.
[2018-03-13] MEDS: Aspirin 81 mg Enteric Coated Tablet PO SCH (20:41)
[2018-03-14] MEDS: Acetaminophen 500 MG TAB PO PRN ×2 (01:51→20:45)
[2018-03-14] MEDS: Levothyroxine Sodium 50 MCG TAB PO SCH (06:07)
[2018-03-14] MEDS: Ferrous Sulfate 325 MG TAB PO SCH (08:38)
[2018-03-14] MEDS: Apixaban 5 MG TAB PO SCH ×2 (08:38→20:47)
[2018-03-14] MEDS: Potassium Chloride 20 MEQ TAB PO SCH (08:38)
[2018-03-14] MEDS: Ezetimibe 10 MG TAB PO SCH (08:38)
[2018-03-14] MEDS: Digoxin 0.125 MG TAB PO SCH (08:40)
[2018-03-14] MEDS: Magnesium Chloride 64 MG TAB PO SCH ×2 (08:42→20:45)
--- NOTE | 2018-03-14 11:38 | PRG ---
DATE OF SERVICE: 03/14/2018 SUBJECTIVE: Mr. Martinez is doing well. Denies any complaints, resting comfortably, hard of hearing. OBJECTIVE: VITAL SIGNS: He is afebrile, heart rate 71, respirations 20, oxygen saturation 98% on room air, bloo d pressure 120/57. CARDIOVASCULAR: S1, S2 plus. RESPIRATORY: Normal vesicular breath sounds. ABDOMEN: Soft, nontender, bowel sounds heard in all quadrants. EXTREMITIES: Without cyanosis or clubbing. CENTRAL NERVOUS SYSTEM: Improving deconditioning. IMPRESSION: 1. Resolved aspiration pneumonia. 2. Improved deconditioning. 3. Paroxysmal atrial fibrillation, now in sinus rhythm. 4. Cognitive deficits, stable. 5. Dyslipidemia. 6. Coronary artery disease without angina. 7. Hypothyroidism. PLAN: 1. Continue current medications. 2. Heart healthy diet. 3. Aspiration precautions. 4. DVT and stress ulcer prophylaxis. 5. Decubitus precautions. 6. Monitor cardiovascular status. 7. Discharge planning. Dr. West stated that his patient is supposed to be discharged on Friday.
[2018-03-14] MEDS: Meclizine HCl 25 MG TAB PO PRN (20:47)
[2018-03-14] MEDS: Aspirin 81 mg Enteric Coated Tablet PO SCH (20:47)
[2018-03-14] MEDS: Cyclobenzaprine 10 MG TAB PO PRN (20:52)
[2018-03-15] MEDS: Levothyroxine Sodium 50 MCG TAB PO SCH (06:10)
[2018-03-15] MEDS: Ferrous Sulfate 325 MG TAB PO SCH (09:46)
[2018-03-15] MEDS: Potassium Chloride 20 MEQ TAB PO SCH (09:46)
[2018-03-15] MEDS: Magnesium Chloride 64 MG TAB PO SCH ×2 (09:46→20:53)
[2018-03-15] MEDS: Apixaban 5 MG TAB PO SCH ×2 (09:47→20:53)
[2018-03-15] MEDS: Ezetimibe 10 MG TAB PO SCH (09:47)
[2018-03-15] MEDS: Digoxin 0.125 MG TAB PO SCH (09:49)
--- NOTE | 2018-03-15 11:38 | PRG ---
DATE OF SERVICE: 03/15/2018 SUBJECTIVE: Mr. Martinez is not able to recognize me today. He asked me if I was a police patrol lieutenant in [facility]. I told him that my name is Dr. Mojica and I am covering for Dr. West and he did not recognize Dr. West. He denies any chest pain or shortness of breath. He denies any concerns . No family at bedside. OBJECTIVE: VITAL SIGNS: He is afebrile, heart rate 66, respirations 18, oxygen saturation 97% on room air, bloo d pressure 140/68. CARDIOVASCULAR SYSTEM: S1, S2 plus. RESPIRATORY SYSTEM: Normal vesicular breath sounds. ABDOMEN: Soft, nontender, bowel sounds heard in all quadrants. EXTREMITIES: Without cyanosis or clubbing. CENTRAL NERVOUS SYSTEM: Definite cognitive deficits. IMPRESSION: 1. Check CBC and BMP today to make sure it is not metabolic. 2. Continue current medications. 3. DVT and stress ulcer prophylaxis. 4. Decubitus precautions. 5. Routine laboratory values. 6. Dr. West back tonight. IMPRESSION: 1. Resolved pneumonia. 2. Coronary artery disease without angina. 3. Hypothyroidism. 4. Gastroesophageal reflux disease.
[2018-03-15 14:52] LABS: #Basophils 0.1 thou/uL (0.0-0.2); #Eosinphils 0.1 thou/uL (0.0-0.7); #Lymphocytes 2.3 thou/uL (1.20-3.40); #Neutrophils 8.1 thou/uL (1.40-6.50); %Basophils 0.9 % (0.0-1.0); %Eosinophils 1.2 % (0.0-10.0); %Lymphocytes 19.3 % (21.0-51.0); %Monocytes 8.4 % (0.0-10.0); %Neutrophils 70.1 % (42.0-75.0); Hemoglobin 12.5 g/dL (14.0-18.0); Mean Corpuscular Hemoglobin 30.7 pg (27.0-31.0); Mean Corpuscular Volume 96.1 fl (80.0-94.0); Mean Platelet Volume 7.3 fL (7.4-10.4); Platelet Count 509 thou/uL (130-400); RBC Distribution Width 13.2 % (11.5-14.5); Red Blood Cell (RBC) Count 4.08 mill/uL (4.70-6.10); White Blood Cell (WBC) Count 11.6 thou/uL (4.8-10.8)
[2018-03-15 15:04] LABS: Anion Gap 16 mmol/L (10-20); BUN (Urea Nitrogen) 31 mg/dL (8.4-25.7); Calc. Creatinine Clearance 29 mL/min (70-130); Calcium 10.1 mg/dL (7.8-10.44); Carbon Dioxide 23 mmol/L (23-31); Chloride 101 mmol/L (98-107); Estimated GFR-MDRD 37; Glucose 120 mg/dL (83-110); Potassium 5.5 mmol/L (3.5-5.1); Sodium 134 mmol/L (136-145)
[2018-03-15] MEDS: Acetaminophen 500 MG TAB PO PRN (20:53)
[2018-03-15] MEDS: Aspirin 81 mg Enteric Coated Tablet PO SCH (20:53)
[2018-03-15] MEDS: Cyclobenzaprine 10 MG TAB PO PRN (20:54)
[2018-03-16] MEDS: Levothyroxine Sodium 50 MCG TAB PO SCH (05:03)
[2018-03-16 07:29] VITALS: BP 144/65
[2018-03-16] MEDS: Ezetimibe 10 MG TAB PO SCH (09:16)
[2018-03-16] MEDS: Apixaban 5 MG TAB PO SCH (09:16)
[2018-03-16] MEDS: Ferrous Sulfate 325 MG TAB PO SCH (09:16)
[2018-03-16] MEDS: Digoxin 0.125 MG TAB PO SCH (09:17)
[2018-03-16] MEDS: Magnesium Chloride 64 MG TAB PO SCH (09:17)
[2018-03-16] MEDS: Potassium Chloride 20 MEQ TAB PO SCH (09:22)
[2018-03-16 11:51] VITALS: TEMP 98
--- NOTE | 2018-03-18 07:45 | DIS ---
DATE OF DISCHARGE TO FAMILY: 03/16/2018 FINAL DIAGNOSES: 1. Right lower lobe pneumonia, resolved. 2. Coronary disease, status post non-ST myocardial infarction. No evidence for recurrent angina. 3. Paroxysmal atrial fibrillation, no evidence for recurrence. 4. Underlying chronic dementia with superimposed hospital delirium, appears to be improving, but sti ll unable to maintain ADLs. 5. Cervical degenerative joint disease with recurrent pain, resolved. HOSPITAL COURSE: The patient is a very pleasant 87-year-old white male well known to myself with a l tere history of coronary disease, status post distant coronary bypass graft, found to have acute onset of atrial fibrillation with fast ventricular response secondary to underlying right lower lobe pneum onia. It was controlled initially on IV diltiazem and started on apixaban for prevention of possible cerebral embolus. His pneumonia responded to Rocephin, azithromycin, Zosyn and vancomycin and then Augmentin when transferred to the [facility] for PT and OT. AT that time he was in ashley l sinus rhythm. He has had a history of atrial fibrillation in the past with inability to tolerate M ultaq or amiodarone, but on medications of digoxin 0.125 and diltiazem 100 mg twice daily, and magnes ium 64 mg twice daily he was maintained in sinus rhythm. He was continued also on his Zetia 10 mg da juana, levothyroxine 50 mcg daily, Imdur ER 30 mg daily, ferrous sulfate 325 daily, Apixaban 2.5 twice daily, omeprazole 20 mg twice daily. He had problems with dizziness and with some confusion limiting his therapy. He had no difficulty during this hospitalization with shortness of breath, chest pain, palpitations, localized numbness, weakness in arms or extremities. The main complaint was dizziness and headache and neck ache. He was evaluated with a CT scan which showed no abnormalities of the br ain other than chronic underlying small vessel disease. Cervical spine x-ray showed degenerative [place] nt disease with resolution of his pain with treatment of muscle spasm. However, he was still felt to be unsafe to care for himself secondary to his cognitive deficits and therefore he was discharged ho la to the care of his family. On discharge, he was walking 242 feet with complete guard assistance, was able to maintain ADLs, had no falls, but was still unsafe in his ambulation. Laboratory showed him to have sodium 134, potassium 5.5, chloride 101, bicarbonate 23, BUN 31, creati nine 1.73, GFR 37. White count was 11,600, hematocrit 39, hemoglobin 12. Digoxin level 1.74. Vital signs showed him to have a blood pressure 144/65, temperature is 98, pulse 70, respirations 20, O2 sats 96%. He is felt to be stable to be discharged home to be under supervision at all times bec ause of his cognitive deficits, but appears to not have any recurrent pneumonia, atrial fibrillation or ischemia on these medications and should be followed up in 1-2 weeks.
== END 2018-03-16 11:15 | DRG 178 ==
LOC: NAV ACUTE 19:37 → UNDOADMIN 19:37 → UNDODISIN 03-16 11:15
PROVIDERS: ADMIT Internal Medicine; ATTEND Internal Medicine
DX: J69.0 Pneumonitis due to inhalation of food and vomit (principal); N17.9 Acute kidney failure, unspecified; I48.0 Paroxysmal atrial fibrillation; F05 Delirium due to known physiological condition; H90.5 Unspecified sensorineural hearing loss; E87.1 Hypo-osmolality and hyponatremia; Z95.1 Presence of aortocoronary bypass graft; E03.9 Hypothyroidism, unspecified; E78.5 Hyperlipidemia, unspecified; I10 Essential (primary) hypertension; I25.10 Atherosclerotic heart disease of native coronary artery without angina pectoris; K21.9 Gastro-esophageal reflux disease without esophagitis; N40.0 Benign prostatic hyperplasia without lower urinary tract symptoms; Z79.82 Long term (current) use of aspirin; Z88.5 Allergy status to narcotic agent; Z88.8 Allergy status to other drugs, medicaments and biological substances; M62.838 Other muscle spasm; M47.9 Spondylosis, unspecified; F03.90 Unspecified dementia, unspecified severity, without behavioral disturbance, psychotic disturbance, mood disturbance, and anxiety; H81.90 Unspecified disorder of vestibular function, unspecified ear; I25.2 Old myocardial infarction
CPT/HCPCS: 36415; 70450; 71045; 72040; 80048; 80053; 80162; 80202; 82565; 85007; 85014; 85018; 85025; 85027; 85049; A4216; G8996-GN-CI; G8996-GN-CK; G8997-GN-CI; G8997-GN-CJ; J2543; J3370; J7050